=== PATIENT | female | born 1970 | race Two or more races ===

== ENCOUNTER 2020-12-16 11:15 | Outpatient (REF) | payer OTHER, SELFPAY | END 2020-12-16 11:16 | disposition home or self-care (01) | LOC: HO.LAB 11:15 | PROVIDERS: Visit Provider Internal Medicine | DX: Z20.822 Contact with and (suspected) exposure to COVID-19 (principal) | CPT/HCPCS: 36415; C9803; U0003; U0005 ==

== ENCOUNTER 2021-07-16 07:29 | Emergency (ER) | payer OTHER, SELFPAY ==
[2021-07-16 07:50] VITALS: BP 119/76; PULSE 88; RESP 13; TEMP 36.6; O2SAT 98
[2021-07-16 07:57] VITALS: BP 119/76; PULSE 86; RESP 17; TEMP 36.6; O2SAT 98; BMI 29.9
--- NOTE | 2021-07-16 08:38 | ED.EAR ---
HPI - Ear Problem General Chief complaint: Ear Problems Stated complaint: ear pain Time Seen by Provider: 07/16/21 08:09 Source: patient Mode of arrival: ambulatory Limitations: no limitations History of Present Illness HPI Narrative: 50-year-old female here with complaints of right ear pain for 2 days. No fevers, chills, URI symptoms. Related Data Previous Rx's Medication Instructions Recorded calcium carbonate 600 mg calcium 600 mg PO DAILY #30 tab 09/13/20 (1,500 mg) tablet cholecalciferol (vitamin D3) 25 25 mcg PO DAILY #30 cap 09/13/20 mcg (1,000 unit) capsule tramadol 50 mg tablet 50 mg PO Q8H 30 Days #90 tab 06/20/21 amoxicillin 875 mg-potassium 1 tab PO BID #14 tab 07/16/21 clavulanate 125 mg tablet (Augmentin) Allergies Allergy/AdvReac Type Severity Reaction Status Date / Time No Known Allergies Allergy Unverified 07/04/20 15:12 Review of Systems Review of Systems: Yes all other systems are reviewed and are negative Constitutional: Constitutional: Reports no additional constitutional complaints, Denies body ache(s), Denies chills, Denies fever(s), Denies headache(s) and Denies weakness Eyes: Eyes: Reports no additional eye complaints and Denies change in vision ENT: Reports system reviewed and no additional complaints, except as documented, Denies dizziness, Reports otalgia, Denies headache(s), Denies nasal congestion, Denies nasal discharge and Denies neck pain Cardiovascular: Cardiovascular: Reports no additional cardiovascular complaints, Denies chest pain, Denies leg edema and Denies dyspnea Respiratory: Respiratory: Reports no additional respiratory complaints, Denies cough and Denies dyspnea Gastrointestinal: Gastrointestinal: Reports no additional gastrointestinal complaints, Denies abdominal pain, Denies diarrhea, Denies nausea and Denies vomiting Genitourinary: Genitourinary: Reports no additional female genitourinary complaints and Denies urinary incontinence Musculoskeletal: Musculoskeletal: Reports no additional musculoskeletal complaints, Denies back pain, Denies arthralgias, Denies joint swelling, Denies neck pain, Denies numbness and Denies tingling Integumentary/Breasts: Skin/Breast: Reports system reviewed and no additional complaints, except as docu and Denies rash Neurologic: Reports system reviewed and no additional complaints, except as documented, Denies Abnormal speech present, Denies dizziness, Denies headache(s), Denies numbness, Denies tingling and Denies weakness PMFSH Past Medical History Attestation statement: The following information was validated with the patient. Source: old records reviewed and nursing notes reviewed Social History Social History Advance Directives: No Patient : No Physical Exam Vital Signs: Vital Signs: Last Vital Signs Temp 97.8 F 07/16/21 07:57 Pulse 86 07/16/21 07:57 Resp 17 07/16/21 07:57 BP 119/76 07/16/21 07:57 Pulse Ox 98 07/16/21 07:57 Body Mass Index 29.9 Const: General: cooperative, healthy appearing, comfortable and no acute distress Orientation/consciousness: patient oriented x3 Limitations: no limitations HENMT: Head: Yes normal to inspection Ears: hearing grossly normal bilaterally, mastoids normal, no periauricular adenopathy and TM abnormal (Right TM bulging with erythema) General nose exam: Normal external nose present Face and sinus: Yes normal facial exam Mouth: Normal oral and palatal mucosa present Throat: Yes posterior oropharynx normal, Yes tonsils normal and Yes uvula midline Eyes: General: appearance normal, both eyes and all related structures Pupils: Equal, round and reactive pupils present Neck: Neck: Yes normal visual inspection, Yes full ROM, Yes no lymphadenopathy and Yes no meningeal signs Chest: Chest palpation & inspection: normal inspection of the chest Resp: Effort & Inspection: normal respiratory effort Auscultation: clear to auscultation bilaterally Cardio: Rate: regular rate Rhythm: regular rhythm Peripheral pulses: Peripheral pulses 2+ throughout GI: Inspection: Yes normal to inspection Palpation (GI): Soft to palpation and nontender Auscultation: normal bowel sounds Back/Spine/Pelvis: Thoracic/Lumbar Spine: thoracic and lumbar spine normal to inspection Skin: General skin exam: no rashes or lesions noted Neuro: General: patient oriented x3, no meningeal signs, no focal motor deficits and normal sensation to monofilament Cranial nerves: Yes Equal, round and reactive pupils present Cognition (Neuro): normal cognition Speech: No Abnormal speech present Gait exam (Neuro): Normal gait present Motor exam (neuro): 5/5 motor strength present throughout Extrem: General: Yes normal to inspection Course Course Course Narrative: Right otitis media on exam. Will treat with course of augmentin. Reviewed worrisome signs and symptoms and when to return to the emergency department. Comfortable discharge home. Discharge Plan Discharge Clinical Impression: Otitis media Patient Disposition: Home, Self-Care Instructions: Ear Infection (ED) Additional Instructions: Increase fluids, rest Motrin or Tylenol for pain or fever Prescriptions: New amoxicillin-pot clavulanate [Augmentin] 875-125 mg tablet 1 tab PO BID Qty: 14 RF: 0 No Action cholecalciferol (vitamin D3) 25 mcg (1,000 unit) capsule 25 mcg PO DAILY Qty: 30 RF: 11 calcium carbonate 600 mg calcium (1,500 mg) tablet 600 mg PO DAILY Qty: 30 RF: 6 tramadol 50 mg tablet 50 mg PO Q8H 30 Days Qty: 90 RF: 0 Referrals: Emanuel Bhatt MD [Primary Care Provider] - 2 days Interventions: ED Discharge Assessment Last Done: 07/16/21 08:27 Discharge Date/Time: 07/16/21 08:28
== END 2021-07-16 08:28 | disposition home or self-care (01) ==
PROVIDERS: Emergency Provider Emergency Medicine Emergency Medical Services; PCP Internal Medicine
DX: H66.91 Otitis media, unspecified, right ear (principal); H92.01 Otalgia, right ear; Z79.899 Other long term (current) drug therapy
CPT/HCPCS: 99283; 99284

== ENCOUNTER 2021-10-22 10:02 | Outpatient (REF) | payer OTHER, SELFPAY ==
--- NOTE | ~2021-10-22 | XR_ITS ---
EXAMINATION: XR LEFT FOREARM AND LEFT HAND. CLINICAL INFORMATION: Pain. COMPARISON: None TECHNIQUE: AP and lateral views of the left forearm were obtained. 3 views left hand/wrist. FINDINGS: LEFT FOREARM: There is no visible fracture or bony abnormality. There is a negative ulnar variance of the wrist. The soft tissues are normal. LEFT HAND/WRIST: The radioulnar carpal, intercarpal, carpometacarpal joint space is maintained normal. There is no visible acute fracture or dislocation. There is negative ulnar variance. XR/XR forearm LT 2V IMPRESSION: Unremarkable left forearm and left hand/wrist exam.
--- NOTE | ~2021-10-22 | XR_ITS ---
EXAMINATION: XR LEFT FOREARM AND LEFT HAND. CLINICAL INFORMATION: Pain. COMPARISON: None TECHNIQUE: AP and lateral views of the left forearm were obtained. 3 views left hand/wrist. FINDINGS: LEFT FOREARM: There is no visible fracture or bony abnormality. There is a negative ulnar variance of the wrist. The soft tissues are normal. LEFT HAND/WRIST: The radioulnar carpal, intercarpal, carpometacarpal joint space is maintained normal. There is no visible acute fracture or dislocation. There is negative ulnar variance. XR/XR hand wrist LT IMPRESSION: Unremarkable left forearm and left hand/wrist exam.
[2021-10-22 10:24] LABS: MANUAL DIFF FLAG NO
[2021-10-22 10:35] LABS: Basophils Percent Auto 0.4 % (0-2); Eosinophils Absolute Auto 0.2 X10*3/uL (0.0-0.4); Eosinophils Percent Auto 2.7 % (0-4); Hematocrit 37.7 % (37.0-47.0); Hemoglobin 12.2 g/dl (12.0-16.0); Imm Gran Abs Auto 0.02 X10*3/uL (0.00-0.03); Imm Gran Pct Auto 0.3 % (0.0-0.4); Lymphocytes Absolute Auto 3.1 X10*3/uL (1.2-4.9); Lymphocytes Percent Auto 41.3 % (20-40); Mean Corpuscular HGB Conc 32.4 g/dl (31.0-35.0); Mean Corpuscular Hemoglobin 29.4 pg (27.0-33.0); Mean Corpuscular Volume 90.8 fL (80.0-98.0); Mean Platelet Volume 8.8 fL (9.4-12.3); Monocytes Absolute Auto 0.6 X10*3/uL (0.1-1.2); Monocytes Percent Auto 7.4 % (2-11); Neutrophils Absolute Auto 3.6 x10*3/uL (2.0-8.3); Neutrophils Percent Auto 47.9 % (45-73); Platelet Count 306 X10*3/uL (160-400); Red Blood Count 4.15 X10*6/uL (4.20-5.50); Red Cell Distribution Width 11.2 % (11.0-16.0); White Blood Count 7.4 X10*3/uL (4.8-10.8)
[2021-10-22 10:47] LABS: Appearance Urine HAZY; Color Urine YELLOW; Glucose Urine UA NEG (NEG); Leukocyte Esterase Urine 1+ (NEG); Nitrite Urine NEG (NEG); Specific Gravity - Urine >= 1.030 (1.005-1.025); UACC Culture Trigger YES; Urine Blood TRACE (NEG); Urine Ketones 5 MG/DL (NEG); Urine Protein TRACE MG/DL (NEG-TRACE)
[2021-10-22 11:02] LABS: RBC Urine 0-2 /HPF (0)
[2021-10-22 11:03] LABS: Estimated Average Glucose 108 mg/dL; Hemoglobin A1c % 5.4 %
[2021-10-22 11:03] LABS: Amorphous Sediment Urine 2+ /LPF; Bacteria Urine 1+ /LPF; Squamous Epithelial Cell Urine 4+ /LPF
[2021-10-22 11:10] LABS: Alanine Aminotransferase 16 U/L (0-31); Albumin Level 4.3 g/dL (3.5-5.0); Alkaline Phosphatase 83 U/L (39-117); Anion Gap 13 (12-20); Aspartate Amino Transferase 16 U/L (5-31); Bilirubin Total 1.2 mg/dL (0.0-1.0); Blood Urea Nitrogen 15 mg/dL (9-16); Calcium 9.8 mg/dL (8.4-10.2); Carbon Dioxide 26 mmol/L (22-29); Chloride 105 mmol/L (96-108); Cholesterol 172 mg/dL; Estimated Glomerular Filt Rate > 60; Glucose Fasting 126 mg/dL (60-99); HDL Cholesterol 38 mg/dL; LDL Cholesterol Calculated 96 mg/dl; Potassium 3.7 mmol/L (3.3-5.1); Sodium 140 mmol/L (135-145); Total Protein 7.8 g/dL (6.5-8.0); Triglycerides 194 mg/dL
[2021-10-22 11:32] LABS: TSH reflex Free T4 2.05 uIU/mL (0.32-4.0); Vitamin D 25-OH Total 26.7 ng/mL (>30)
== END 2021-10-22 10:03 | disposition home or self-care (01) ==
LOC: HO.LAB 10:02
PROVIDERS: PCP Internal Medicine; Visit Provider Internal Medicine
DX: Z00.00 Encounter for general adult medical examination without abnormal findings (principal); R73.01 Impaired fasting glucose; E78.00 Pure hypercholesterolemia, unspecified; E55.9 Vitamin D deficiency, unspecified; M79.632 Pain in left forearm; M79.89 Other specified soft tissue disorders
CPT/HCPCS: 36415; 73090; 73110; 73130; 80053; 80061; 81001; 82306; 83036; 84443; 85025; 87086

== ENCOUNTER 2022-01-06 15:21 | Outpatient (REF) | payer OTHER, SELFPAY ==
--- NOTE | ~2022-01-06 | MM_ITS ---
EXAMINATION: MM SCREENING DIGITAL BREAST TOMOSYNTHESIS, BILATERAL CLINICAL INFORMATION: Screening. Asymptomatic. The lifetime risk of breast cancer based on the Tyrer-Cuzick Model is 6.4%. COMPARISON: Mammography: October 24, 2019 and studies dating back to August 12, 2016 TECHNIQUE: Digital breast tomosynthesis is performed in both the craniocaudal and mediolateral oblique views along with computer-aided detection (CAD). Synthesized 2D images are generated from the tomosynthesis. FINDINGS: The breasts are extremely dense, which lowers the sensitivity of mammography (ACR BI-RADS breast composition Category d). There are no significant masses, abnormal calcifications, or other abnormalities. MM/MM tomosynthesis screening BI IMPRESSION: There are no significant changes from prior study. ASSESSMENT: BI-RADS 1: Negative RECOMMENDATION: Routine annual mammography screening. This patient's information was entered into a reminder system with a target due date for their next mammogram.
== END 2022-01-06 15:22 | disposition home or self-care (01) ==
LOC: HO.MAMMO 15:21
PROVIDERS: Visit Provider Internal Medicine
DX: Z12.31 Encounter for screening mammogram for malignant neoplasm of breast (principal)
CPT/HCPCS: 77063; 77067

== ENCOUNTER → 2022-02-13 13:45 | Outpatient (BNVA) | payer OTHER, SELFPAY | PROVIDERS: PCP Internal Medicine; Referring Provider Internal Medicine; Visit Provider Nurse Practitioner | DX: Z12.11 Encounter for screening for malignant neoplasm of colon (principal); T88.3XXD Malignant hyperthermia due to anesthesia, subsequent encounter | CPT/HCPCS: 99202 ==

== ENCOUNTER 2022-03-22 19:31 | Emergency (ER) | payer OTHER, SELFPAY ==
--- NOTE | ~2022-03-22 | XR_ITS ---
EXAMINATION: XR KNEE, LEFT CLINICAL INFORMATION: Fall COMPARISON: None TECHNIQUE: Four views of the left knee. FINDINGS: Osseous alignment is anatomic. Joint spaces are relatively well-preserved. No acute fracture is seen. Mild spurring is noted along the superior patella at the insertion of the quadriceps tendon. No significant effusion. XR/XR knee LT 3V IMPRESSION: No acute findings.
[2022-03-22 20:55] VITALS: BP 125/80; PULSE 85; RESP 18; TEMP 36.6; O2SAT 99; BMI 25.9
--- NOTE | 2022-03-23 00:35 | ED.LOWEXIN ---
HPI - Extremity Injury (Lower) General Chief Complaint: Extremity Injury, Lower Stated Complaint: pain in foot Time Seen by Provider: 03/23/22 00:28 History of Present Illness HPI Narrative: Patient is a 51-year-old female presents today with having pain to the left knee. Patient claims that she was sliding doing her volleyball game. Complaining of pain after the slide. Patient denies any systemic complaints. Came with her daughter. Patient denies any head injury. Not on blood thinners. No nausea no vomiting. No systemic complaints. Pain worsened with movement. Related Data Previous Rx's Medication Instructions Recorded calcium carbonate 600 mg calcium 600 mg PO DAILY #30 tab 09/24/21 (1,500 mg) tablet cholecalciferol (vitamin D3) 25 25 mcg PO DAILY #30 cap 09/24/21 mcg (1,000 unit) capsule albuterol sulfate 90 mcg/actuation 2 inh INHALATION Q4-6H PRN #1 ea 10/20/21 breath activated powder inhaler (ProAir RespiClick) amoxicillin 875 mg-potassium 1 tab PO Q12H 10 Days #20 tab 10/20/21 clavulanate 125 mg tablet topiramate 25 mg tablet 25 mg PO BEDTIME 90 Days #90 tab 10/20/21 albuterol sulfate 90 mcg/actuation 2 puff INHALATION Q4-6H PRN #8.5 g 11/10/21 aerosol inhaler (Ventolin HFA) albuterol sulfate 90 mcg/actuation 1 puff INHALATION QID 30 Days #8.5 11/17/21 aerosol inhaler (ProAir HFA) g peg 3350-electrolytes 236 240 ml PO Q10M 1 Days #4000 ml 02/13/22 gram-22.74 gram-6.74 gram-5.86 gram solution (Golytely) tramadol 50 mg tablet 50 mg PO Q8H PRN 30 Days #90 tab 03/09/22 omega-3 fatty acids 1,000 mg 2,000 mg PO DAILY 30 Days #60 cap 03/10/22 capsule ibuprofen 400 mg tablet 400 mg PO Q6H PRN #20 tab 03/23/22 Allergies Allergy/AdvReac Type Severity Reaction Status Date / Time No Known Allergies Allergy Verified 03/22/22 20:55 Review of Systems Review of Systems: Positive pain to the left knee Yes all other systems are reviewed and are negative PMFSH Past Medical History Attestation statement: The following information was validated with the patient. Medical History Asthma Impaired fasting glucose Migraine Vitamin D deficiency Surgical History No pertinent past surgical history Family History Family History Father Cancer Mother Diabetes Social History Social History Housing: Apartment Alcohol intake: never Patient Tobacco Use Status: Never used Tobacco Second Hand Smoke Exposure: No Advance Directives: No Advance Directives Information Provided: No Current occupational status: employed Physical Exam Vital Signs: Vital Signs: Last Vital Signs Temp 97.8 F 03/22/22 20:55 Pulse 85 03/22/22 20:55 Resp 18 03/22/22 20:55 BP 125/80 03/22/22 20:55 Pulse Ox 99 03/22/22 20:55 BMI result Body Mass Index 25.9 Appearance: Alert. Oriented X3. No acute distress. Eyes: Pupils equal, round and reactive to light. ENT: Pharynx normal. Neck: Normal inspection. Neck supple. No lymph nodes noted. No crepitus CVS: Normal heart rate and rhythm. Pulses normal. Normal S1 and S2 Respiratory: No respiratory distress. Breath sounds normal. No Wheezing. No rales Abdomen: Soft and nontender. No rigidity. No distention. good BS x4 Skin: Skin warm and dry. Normal skin color. Normal skin turgor. Extremities: Positive pain to the left knee. There is no tenderness on palpation of the patella. There is no tenderness on palpation of the medial and lateral collateral ligament. Flexion intact. Extension intact. Pain on ambulation noted. There is no pain on palpation of the medial or lateral malleolus on the left. There is no tenderness at the base of the 5th metatarsal. Patient pain is localized to the knee when she ambulates. Flexion of the hip showed no tenderness. Skin intact. Neuro: Oriented X 3. No motor deficit. No sensory deficit. Moving all extermities. No slurred speech MDM - Extremity Injury (Lower) MDM Narrative Medical decision making narrative: Patient's x-ray of the ankle showed no acute fracture. Cannot rule out the possibility of ligamentous and meniscal injury. Will have patient take Motrin for now follow-up on an outpatient basis. In stable condition. Differential Diagnosis Differential diagnosis: Likely acute internal derangement of knee Discharge Plan Discharge Clinical Impression: Acute knee pain Patient Disposition: Home, Self-Care Instructions: Crutch Instructions (ED), Knee Pain (ED) Prescriptions: New ibuprofen 400 mg tablet 400 mg PO Q6H PRN (Reason: pain) Qty: 20 0RF No Action cholecalciferol (vitamin D3) 25 mcg (1,000 unit) capsule 25 mcg PO DAILY Qty: 30 11RF calcium carbonate 600 mg calcium (1,500 mg) tablet 600 mg PO DAILY Qty: 30 6RF albuterol sulfate [Ventolin HFA] 90 mcg/actuation HFA aerosol inhaler 2 puff inhalation Q4-6H PRN (Reason: shortness of breath or wheezing) Qty: 8.5 0RF albuterol sulfate [ProAir HFA] 90 mcg/actuation HFA aerosol inhaler 1 puff inhalation QID 30 Days Qty: 8.5 1RF tramadol 50 mg tablet 50 mg PO Q8H PRN (Reason: pain) 30 Days Qty: 90 1RF omega-3 fatty acids 1,000 mg capsule 2,000 mg PO DAILY 30 Days Qty: 60 5RF Rx Instructions: 2 capsules Orally Once a day ProAir RespiClick 90 mcg/actuation aerosol powdr breath activated 2 inh inhalation Q4-6H PRN (Reason: shortness of breath or wheezing) Qty: 1 3RF topiramate 25 mg tablet 25 mg PO BEDTIME 90 Days Qty: 90 3RF amoxicillin-pot clavulanate 875-125 mg tablet 1 tab PO Q12H 10 Days Qty: 20 0RF peg 3350-electrolytes [Golytely] 236-22.74-6.74 -5.86 gram recon soln 240 ml PO Q10M 1 Days Qty: 4000 0RF Rx Instructions: until fecal effluent is clear; do not exceed a total volume of 2,000 mL Referrals: Salo Karimi MD [Physician] -
--- NOTE | 2022-03-23 01:33 | PC.NURSE ---
pt declined crutches.
== END 2022-03-23 01:34 | disposition home or self-care (01) ==
PROVIDERS: Emergency Provider Emergency Medicine Emergency Medical Services
DX: M25.562 Pain in left knee (principal)
CPT/HCPCS: 73562; 99282; 99283

== ENCOUNTER 2022-05-22 14:40 | Emergency (ER) | payer OTHER, SELFPAY ==
[2022-05-22 14:56] VITALS: BP 122/79; PULSE 82; RESP 16; TEMP 36.7; O2SAT 96; BMI 26.2
[2022-05-22 16:36] LABS: Appearance Urine CLEAR; Color Urine YELLOW; Glucose Urine UA NEG (NEG); Leukocyte Esterase Urine NEG (NEG); Nitrite Urine NEG (NEG); Specific Gravity - Urine 1.025 (1.005-1.025); UPreg QC Valid YES; Urine Blood NEG (NEG); Urine Ketones NEG (NEG); Urine Pregnancy NEGATIVE (NEGATIVE); Urine Protein NEG (NEG-TRACE)
[2022-05-22] MEDS: Acetaminophen 325 MG TABLET 975 MG PO (16:55)
[2022-05-22] MEDS: Ketorolac Tromethamine 30 MG/ML VIAL IM (16:56)
[2022-05-22] MEDS: Lidocaine 4 % Patch ADH..PATCH 1 PATCH TRANSDERMA (16:56)
--- NOTE | 2022-05-22 17:04 | ED_ITS ---
HPI - Back Pain/Injury General Chief Complaint: Back Pain/Injury Stated Complaint: back pain Time Seen by Provider: 05/22/22 15:16 Source: patient Mode of arrival: ambulatory History of Present Illness HPI Narrative: 51-year-old female who presents with left lower back pain that occurred while she was at work and moved a trash bag which was have your than she expected, it broke and then as the trash can fell over patient was pulled down with that in as per the triage note this occurred down 3 stairs. Patient denies head strike or loss of consciousness and reports localized left lower back pain without radiation into the lower extremity. Related Data Previous Rx's Medication Instructions Recorded cholecalciferol (vitamin D3) 25 25 mcg PO DAILY #30 caps 09/24/21 mcg (1,000 unit) capsule albuterol sulfate 90 mcg/actuation 2 inh inhalation Q4-6H PRN 10/20/21 breath activated powder inhaler shortness of breath or wheezing #1 (ProAir RespiClick) ea amoxicillin 875 mg-potassium 1 tab PO Q12H 10 days #20 tabs 10/20/21 clavulanate 125 mg tablet topiramate 25 mg tablet 25 mg PO BEDTIME 90 days #90 tabs 10/20/21 albuterol sulfate 90 mcg/actuation 2 puff inhalation Q4-6H PRN 11/10/21 aerosol inhaler (Ventolin HFA) shortness of breath or wheezing #8.5 grams peg 3350-electrolytes 236 240 ml PO Q10M 1 day #4,000 mL 02/13/22 gram-22.74 gram-6.74 gram-5.86 gram solution (Golytely) omega-3 fatty acids 1,000 mg 2,000 mg PO DAILY 30 days #60 caps 03/10/22 capsule ibuprofen 400 mg tablet 400 mg PO Q6H PRN pain #20 tabs 03/23/22 albuterol sulfate 90 mcg/actuation 1 puff inhalation QID 30 days #8.5 04/06/22 aerosol inhaler (ProAir HFA) grams tramadol 50 mg tablet 50 mg PO Q8H PRN pain 30 days #90 04/29/22 tabs calcium carbonate 600 mg calcium 600 mg PO DAILY #30 tabs 05/04/22 (1,500 mg) tablet cyclobenzaprine 5 mg tablet 5 mg PO BEDTIME PRN muscle spasm 05/22/22 #4 tabs ketorolac 10 mg tablet 10 mg PO Q6H PRN pain 5 days #20 05/22/22 tabs Allergies Allergy/AdvReac Type Severity Reaction Status Date / Time No Known Allergies Allergy Verified 05/22/22 14:56 Review of Systems Review of Systems: Pertinent positives and negatives as stated in HPI 10 point review of systems is otherwise negative. PMFSH Past Medical History Source: nursing notes reviewed Medical History Asthma Impaired fasting glucose Migraine Vitamin D deficiency Surgical History No pertinent past surgical history Family History Family History Father Cancer Mother Diabetes Social History Social History Housing: Apartment Alcohol intake: never Patient Tobacco Use Status: Never used Tobacco Second Hand Smoke Exposure: No Advance Directives: No Advance Directives Information Provided: Yes Current occupational status: employed Physical Exam Vital Signs: Vital Signs: Last Vital Signs Temp 98.0 F 05/22/22 14:56 Pulse 82 05/22/22 14:56 Resp 16 05/22/22 14:56 BP 122/79 05/22/22 14:56 Pulse Ox 96 05/22/22 14:56 O2 Del Method 05/22/22 14:56 BMI result Body Mass Index 26.2 VITAL SIGNS: Reviewed. GENERAL: Well developed, well nourished, in no acute distress. HEAD: Normocephalic/atraumatic EYES: PERRLA, EOMI EARS: Ext canals without abnormality OROPHARYNX: no oral lesions noted, posterior pharynx clear LUNGS: Normal breath sounds. No adventitious sounds or accessory muscle use. SpO2<96> CARDIOVASCULAR: Regular rate and rhythm without noted murmurs ABDOMEN: Soft, non-tender, non-distended with bowel sounds. BACK: No midline vertebral tenderness, patient has pain on palpation at the left lower paraspinal that extends into the flank area no overlying ecchymosis or erythema MUSCULOSKELETAL: No tenderness, deformities, or effusions noted on gross inspection. EXTREMITIES: No cyanosis, clubbing or edema. SKIN: Inspection of the skin reveals no rashes NEUROLOGIC: Alert and oriented x 4. Strength and sensation to light touch were grossly intact x 4. Course Course Course Narrative: 51-year-old female with history and clinical presentation consistent with lumbar muscle strain, combination analgesics were provided, review of all investigations otherwise negative for acute findings and patient was discharged home in stable condition. MDM - Back Pain/Injury Lab Data Labs: Lab Results 05/22/22 05/22/22 Range/Units 16:28 16:28 Urine Color YELLOW Urine Appearance CLEAR Urine pH 6.0 (5.0-8.0) Ur Specific [place] 1.025 (1.005-1.025) Urine Protein NEG (NEG-TRACE) MG/DL Urine Glucose (UA) NEG (NEG) MG/DL Urine Ketones NEG (NEG) MG/DL Urine Blood NEG (NEG) Urine Nitrite NEG (NEG) Ur Leukocyte Esterase NEG (NEG) Urine Test NEGATIVE (NEGATIVE) Discharge Plan Discharge Clinical Impression: Strain of lumbar region Patient Disposition: Home, Self-Care Instructions: Low Back Strain (ED), Back Pain (ED), Lower Back Exercises (ED), Cold Compress or Soak (ED) Additional Instructions: 1. Resume all home medications as prescribed. 2. Tylenol 1000 mg, orally, every 6 hours as needed for pain control. Do not exceed 4000 mg within 24 hours. 3. Lidocaine patch, apply to area of maximal tenderness as directed on the outside packaging. 4. Please follow-up with your primary care provider in the next 2-3 days for re- evaluation further outpatient management. Return to the ER for worsening symptoms. Prescriptions: New cyclobenzaprine 5 mg tablet 5 mg PO BEDTIME PRN (Reason: muscle spasm) Qty: 4 0RF ketorolac 10 mg tablet 10 mg PO Q6H PRN (Reason: pain) 5 Days Qty: 20 0RF Rx Instructions: 1. Patient received Toradol in the emergency room. 2. Please instruct patient. All other NSAIDs. No Action cholecalciferol (vitamin D3) 25 mcg (1,000 unit) capsule 25 mcg PO DAILY Qty: 30 11RF albuterol sulfate [Ventolin HFA] 90 mcg/actuation HFA aerosol inhaler 2 puff inhalation Q4-6H PRN (Reason: shortness of breath or wheezing) Qty: 8.5 0RF omega-3 fatty acids 1,000 mg capsule 2,000 mg PO DAILY 30 Days Qty: 60 5RF Rx Instructions: 2 capsules Orally Once a day albuterol sulfate [ProAir HFA] 90 mcg/actuation HFA aerosol inhaler 1 puff inhalation QID 30 Days Qty: 8.5 1RF tramadol 50 mg tablet 50 mg PO Q8H PRN (Reason: pain) 30 Days Qty: 90 1RF calcium carbonate 600 mg calcium (1,500 mg) tablet 600 mg PO DAILY Qty: 30 6RF ibuprofen 400 mg tablet 400 mg PO Q6H PRN (Reason: pain) Qty: 20 0RF ProAir RespiClick 90 mcg/actuation aerosol powdr breath activated 2 inh inhalation Q4-6H PRN (Reason: shortness of breath or wheezing) Qty: 1 3RF topiramate 25 mg tablet 25 mg PO BEDTIME 90 Days Qty: 90 3RF amoxicillin-pot clavulanate 875-125 mg tablet 1 tab PO Q12H 10 Days Qty: 20 0RF peg 3350-electrolytes [Golytely] 236-22.74-6.74 -5.86 gram recon soln 240 ml PO Q10M 1 Days Qty: 4000 0RF Rx Instructions: until fecal effluent is clear; do not exceed a total volume of 2,000 mL Referrals: Emanuel Bhatt MD [Primary Care Provider] - Stand Alone Forms: Work/School Release
== END 2022-05-22 18:17 | disposition home or self-care (01) ==
PROVIDERS: Emergency Provider Student in an Organized Health Care Education/Training Program; PCP Internal Medicine
DX: M54.50 Low back pain, unspecified (principal); Z79.899 Other long term (current) drug therapy
CPT/HCPCS: 81003; 81025; 96372; 99284; J1885

== ENCOUNTER 2023-01-08 13:09 | Outpatient (REF) | payer OTHER, SELFPAY ==
--- NOTE | ~2023-01-08 | MM_ITS ---
EXAMINATION: MM SCREENING DIGITAL BREAST TOMOSYNTHESIS, BILATERAL CLINICAL INFORMATION: Screening. Asymptomatic. The lifetime risk of breast cancer based on the Tyrer-Cuzick Model is 6%. COMPARISON: Mammography: 01/06/2022, 10/24/2019, 09/14/2018 TECHNIQUE: Digital breast tomosynthesis is performed in both the craniocaudal and mediolateral oblique views along with computer-aided detection (CAD). Synthesized 2D images are generated from the tomosynthesis. FINDINGS: The breasts are heterogeneously dense, which may obscure small masses (ACR BI-RADS breast composition Category c). Parenchymal pattern is similar to prior studies. There is no significant masses, developing density, or architectural abnormality. Again, there are multiple scattered bilateral round and some vascular calcifications. The axilla and skin contours are unremarkable. No significant changes. MM/MM tomosynthesis screening BI IMPRESSION: No mammographic evidence of malignancy. ASSESSMENT: BI-RADS 2: Benign RECOMMENDATION: Routine annual mammography screening. This patient's information was entered into a reminder system with a target due date for their next mammogram.
== END 2023-01-08 13:10 | disposition home or self-care (01) ==
LOC: HO.MAMMO 13:09
PROVIDERS: PCP Internal Medicine; Visit Provider Internal Medicine
DX: Z12.31 Encounter for screening mammogram for malignant neoplasm of breast (principal)
CPT/HCPCS: 77063; 77067

== ENCOUNTER 2023-03-18 09:08 | Outpatient (REF) | payer OTHER, SELFPAY ==
[2023-03-18 09:18] LABS: MANUAL DIFF FLAG NO
[2023-03-18 09:59] LABS: Basophils Percent Auto 0.4 % (0-2); Eosinophils Absolute Auto 0.3 X10*3/uL (0.0-0.4); Hematocrit 35.7 % (37.0-47.0); Hemoglobin 11.7 g/dl (12.0-16.0); Imm Gran Abs Auto 0.02 X10*3/uL (0.00-0.03); Imm Gran Pct Auto 0.3 % (0.0-0.4); Lymphocytes Absolute Auto 3.5 X10*3/uL (1.2-4.9); Lymphocytes Percent Auto 44.3 % (20-40); Mean Corpuscular HGB Conc 32.8 g/dl (31.0-35.0); Mean Corpuscular Hemoglobin 29.6 pg (27.0-33.0); Mean Corpuscular Volume 90.4 fL (80.0-98.0); Mean Platelet Volume 9.3 fL (9.4-12.3); Monocytes Absolute Auto 0.5 X10*3/uL (0.1-1.2); Monocytes Percent Auto 6.1 % (2-11); Neutrophils Absolute Auto 3.5 x10*3/uL (2.0-8.3); Neutrophils Percent Auto 44.9 % (45-73); Platelet Count 314 X10*3/uL (160-400); Red Blood Count 3.95 X10*6/uL (4.20-5.50); Red Cell Distribution Width 11.1 % (11.0-16.0); White Blood Count 7.8 X10*3/uL (4.8-10.8)
[2023-03-18 10:10] LABS: Estimated Average Glucose 100 mg/dL; Hemoglobin A1c % 5.1 %
[2023-03-18 10:27] LABS: Appearance Urine Cloudy; Color Urine Yellow; Glucose Urine UA Negative (Negative); Leukocyte Esterase Urine Moderate (2+) (Negative); Nitrite Urine Negative (Negative); PH 5.5 (5.0-9.0); Specific Gravity - Urine 1.025 (1.005-1.025); UMIC TRIGGER UACC YES; Urine Blood Trace (Negative); Urine Ketones Negative (Negative); Urine Protein 30 (1+) mg/dL (Neg-Trace)
[2023-03-18 10:36] LABS: Bacteria Urine None Seen (None Seen); UACC Culture Trigger YES
[2023-03-18 10:50] LABS: Alanine Aminotransferase 12 U/L (0-31); Albumin Level 4.4 g/dL (3.5-5.0); Alkaline Phosphatase 88 U/L (39-117); Anion Gap 14 (12-20); Aspartate Amino Transferase 12 U/L (5-31); Bilirubin Total 0.9 mg/dL (0.0-1.0); Blood Urea Nitrogen 14 mg/dL (9-16); Calcium 9.4 mg/dL (8.4-10.2); Carbon Dioxide 22 mmol/L (22-29); Chloride 109 mmol/L (96-108); Cholesterol 180 mg/dL; Estimated Glomerular Filt Rate > 60; Glucose Fasting 110 mg/dL (60-99); HDL Cholesterol 38 mg/dL; LDL Cholesterol Calculated 119 mg/dl; Potassium 3.9 mmol/L (3.3-5.1); Sodium 141 mmol/L (135-145); Total Protein 7.5 g/dL (6.5-8.0); Triglycerides 118 mg/dL
[2023-03-18 10:52] LABS: TSH reflex Free T4 3.25 uIU/mL (0.32-4.0); Vitamin D 25-OH Total 16.8 ng/mL (>30)
== END 2023-03-18 09:09 | disposition home or self-care (01) ==
LOC: HO.LAB 09:08
PROVIDERS: PCP Internal Medicine; Visit Provider Internal Medicine
DX: Z00.00 Encounter for general adult medical examination without abnormal findings (principal); E78.00 Pure hypercholesterolemia, unspecified; E55.9 Vitamin D deficiency, unspecified; R73.01 Impaired fasting glucose
CPT/HCPCS: 36415; 80053; 80061; 81001; 81003; 82306; 83036; 84443; 85025; 87086; 87147

== ENCOUNTER 2023-05-20 13:31 | Outpatient (AMB) | payer OTHER, SELFPAY ==
[2023-05-20 13:38] VITALS: BP 100/70; PULSE 88; O2SAT 99; BMI 23.3
--- NOTE | 2023-05-20 13:38 | A.OFFPC_ITS ---
Vital Signs 05/20/23 13:38 Height 4 ft 8 in Weight 104 lb BMI 23.3 BP 100/70 Blood Pressure Location Lt brachial Position Sitting Pulse 88 Pulse Source Pulse Oximeter Temp Source Skin Pulse Oximetry (%) 99 Oxygen Delivery Method Room Air Intake Visit Reasons: possible UTI, right ear pain Intake Note: pt states burning when urinating and right ear pain with drainage Allergies No Known Allergies Allergy (Verified 05/20/23 13:51) Medication List - Last Reconciled 05/20/23 by RACHEL Bucio albuterol sulfate 90 mcg/actuation (ProAir RespiClick) 2 inhalations inhalation Q4-6H PRN albuterol sulfate 90 mcg/actuation (ProAir HFA) 1 puff inhalation QID 30 days albuterol sulfate 90 mcg/actuation (Ventolin HFA) 2 puffs inhalation Q4-6H PRN calcium carbonate 600 mg PO DAILY cholecalciferol (vitamin D3) 25 mcg PO DAILY cyclobenzaprine 5 mg PO BEDTIME PRN ibuprofen 400 mg PO Q6H PRN ketorolac 10 mg PO Q6H PRN 5 days mometasone 0.1% 1 appl topical DAILY 10 days omega-3 fatty acids 2,000 mg (2 x 1,000 mg) PO DAILY 30 days tramadol 50 mg PO Q8H PRN 30 days trazodone 50 mg PO BEDTIME PRN 30 days Tobacco use date assessed: 05/20/23 HPI possible UTI, right ear pain HPI Details Patient is a 52-year-old female who presents today for the same day visit due to burning with urination for the past 3 days and right ear pain with yellow/white intermittent discharge for the past 4 days. Patient reports ear infections in the past. Patient of Dr. Bhatt. Patient denies being recently sick, no fever or chills, no headache, no sore throat, no nausea/vomiting, no blood in urine, no back pain. [facility] Medical History Asthma Impaired fasting glucose Insomnia Migraine Vitamin D deficiency Surgical History No pertinent past surgical history Family History Father Cancer Mother Diabetes Social History Housing: Apartment Alcohol intake: never Patient Tobacco Use Status: Never used Tobacco e-Cigarette/Vaping Use: Never Used Second Hand Smoke Exposure: No Current occupational status: employed Cognitive needs: No Hearing needs: No Vision needs: No Questionnaire Thrive Questionnaire Date Thrive assessed: 02/24/23 AUDIT C Alcohol Use Questionnaire (AUDIT-C) 1. How often do you have a drink containing alcohol?: Never 3. How often do you have six or more drinks on one occasion?: Never Total Score: 0 Score Reviewed/Action Taken: No VANI-7 AMB Questionnaire VANI-7 Date VANI - 7 assessed: 02/24/23 Source: Developed by Drs. Etienne Baird, Suad Velasquez, Federico Dupont and colleagues, with an educational nathan from [employer]. Review of Systems Const Denies body aches, Denies chills, Denies fever(s) and Denies headache(s) Eyes Denies change in vision ENT Denies dizziness, Reports otalgia, Denies headache(s), Denies nasal discharge, Denies sinus pain and Denies sore throat Card Denies chest pain, Denies edema, Denies lightheadedness and Denies dyspnea Resp Denies cough, Denies dyspnea and Denies wheezing GI Denies abdominal pain, Denies constipation, Denies diarrhea, Denies nausea and Denies vomiting Denies hematuria, Reports dysuria and Denies flank pain Musc Denies myalgias Skin/Breast Denies rash Neuro Denies dizziness and Denies headache(s) Aller/Immun Denies wheezing Physical exam (Primary Care) Vital Signs: Last Vital Signs Pulse 88 05/20/23 13:38 BP 100/70 05/20/23 13:38 Pulse Ox 99 05/20/23 13:38 Oxygen Delivery Method Room Air 05/20/23 13:38 BMI result Body Mass Index 23.3 Tobacco/Smoking Status: Tobacco use Status Tobacco use date assessed 05/20/23 05/20/23 13:44 Patient Tobacco Use Status Never used Tobacco 05/20/23 13:44 e-Cigarette/Vaping Use Never Used 05/20/23 13:44 Thrive Assessment: Date of Thrive Assessment Date Thrive assessed 02/24/23 05/20/23 13:44 Const General: cooperative and no acute distress Orientation/consciousness: patient oriented x3 HENMT Other: Left TM partially obstructed by cerumen, visualized TM normal Right TM partially obstructed by cerumen, visualized TM normal, right ear canal with moderate erythema and swelling, no discharge noted Head: Yes normocephalic and Yes atraumatic Face and sinus: Yes sinuses nontender Mouth: oropharynx normal and moist mucous membranes Throat: Yes posterior oropharynx normal Eyes General: appearance normal, both eyes and all related structures Neck Neck: Yes normal visual inspection, Yes full ROM and Yes no lymphadenopathy Resp Effort & Inspection: normal respiratory effort and able to speak in complete sentences Auscultation: clear to auscultation bilaterally, no crackles, no rales, no rhonchi and no wheezes Cardio Rate: regular rate Rhythm: regular rhythm Heart sounds: S1 normal heart sound present and S2 normal heart sound present GI Palpation (GI): Soft to palpation, not firm, nontender, no guarding, not rigid and no hepatosplenomegaly Auscultation: normal bowel sounds General: No CVA tenderness Back/Spine/Pelvis Back: No CVA tenderness Skin General skin exam: no rashes or lesions noted Neuro General: patient oriented x3 Gait exam (Neuro): Normal gait present Extrem General: Yes full ROM and No edema Results AMB Urinalysis, Automated UA Leukoctes 500 Chapis/uL Last Edit by WILLI Sumner on 05/20/23 13:46 UA Nitrite Positive Last Edit by WILLI Sumner on 05/20/23 13:46 UA Urobilinogen 0.2 mg/dL Last Edit by WILLI Sumner on 05/20/23 13:46 UA Protein 100 mg/dL Last Edit by WILLI Sumner on 05/20/23 13:46 UA pH 6.0 Last Edit by WILLI Sumner on 05/20/23 13:46 UA Blood 200 Ignacio/uL Last Edit by WILLI Sumner on 05/20/23 13:46 UA Specific Hammond 1.025 Last Edit by WILLI Sumner on 05/20/23 13:46 UA Ketone Negative Last Edit by WILLI Sumner on 05/20/23 13:46 UA Bilirubin 0 mg/dL Last Edit by WILLI Sumner on 05/20/23 13:46 UA Glucose 0 mg/dL Last Edit by WILLI Sumner on 05/20/23 13:46 Results Reviewed Results Reviewed: Laboratory Last Values Urine pH (Auto) 6.0 05/20/23 13:44 Specific [place] (Auto) 1.025 05/20/23 13:44 Urine Protein (Auto) 100 mg/dL 05/20/23 13:44 Glucose (UA)(Auto) 0 mg/dL 05/20/23 13:44 Urine Ketones (Auto) Negative 05/20/23 13:44 Urine Blood (Auto) 200 Ignacio/uL 05/20/23 13:44 Urine Nitrite (Auto) Positive 05/20/23 13:44 Urine Bilirubin (Auto) 0 mg/dL 05/20/23 13:44 Urine Urobilinogen (Auto) 0.2 mg/dL 05/20/23 13:44 Leukocyte Esterase (Auto) 500 Chapis/uL 05/20/23 13:44 Assessment and Plan Assessment & Plan (1) Right otitis externa: Code(s): H60.91 - Unspecified otitis externa, right ear Plan: Suspect right otitis externa, will treat with ear drops to right ear t.i.d. for 7 days, follow-up if no improvement after finishing ear drops (2) UTI (urinary tract infection): Code(s): N39.0 - Urinary tract infection, site not specified Plan: Urinalysis positive for UTI Will treat with Macrobid b.i.d. for 7 days Increase fluid consumption Follow-up if no improvement after finishing treatment Orders: Orders AMB Urinalysis Automated Today R30.0 - Dysuria Medications: New nitrofurantoin monohyd/m-cryst 100 mg (Macrobid) must administer with a meal/food 100 mg PO Q12H 7 days 14 caps 0RF N39.0 - Urinary tract infection, site not specified hydrocortisone-acetic acid 1-2 % 4 drps otic (ears) TID 7 days 10 mL 0RF H60.91 - Unspecified otitis externa, right ear Coding Level of Care Code Est Pt Level 4 (92123) Diagnoses Right otitis externa H60.91 UTI (urinary tract infection) N39.0
== END 2023-05-20 14:03 | disposition home or self-care (01) ==
PROVIDERS: PCP Internal Medicine; Visit Provider Nurse Practitioner Family
DX: H60.91 Unspecified otitis externa, right ear (principal); N39.0 Urinary tract infection, site not specified; R30.0 Dysuria
CPT/HCPCS: 81003; 99214

== ENCOUNTER 2023-08-27 09:33 | Outpatient (AMB) | payer OTHER, SELFPAY ==
[2023-08-27 09:48] VITALS: BP 118/80; O2SAT 99; BMI 24.0
--- NOTE | 2023-08-27 09:48 | A.OFFPC_ITS ---
Vital Signs 08/27/23 09:48 08/27/23 09:48 Height 4 ft 8 in 4 ft 8 in Weight 48.591 kg BMI 24.0 BP 118/80 Blood Pressure Location Lt brachial Lt brachial Position Sitting Sitting Pulse Source Pulse Oximeter Pulse Oximeter Pulse Oximetry (%) 99 Oxygen Delivery Method Room Air Room Air Intake Visit Reasons: migraine, asthma, insomnia Allergies No Known Allergies Allergy (Verified 08/27/23 09:48) Tobacco use date assessed: 05/20/23 Dental Screening Dental Screen Date: 08/27/23 Did you have a dental visit in the last 12 months?: Yes Did you have a dental problem in the last 6 months where you did not have access to dental care?: No Was dental information given to patient?: Patient has dentist [facility] Medical History Asthma Impaired fasting glucose Insomnia Migraine Vitamin D deficiency Surgical History No pertinent past surgical history Family History Father Cancer Mother Diabetes Social History Housing: Apartment Alcohol intake: never Patient Tobacco Use Status: Never used Tobacco e-Cigarette/Vaping Use: Never Used Second Hand Smoke Exposure: No Current occupational status: employed Cognitive needs: No Hearing needs: No Vision needs: No Questionnaire PHQ-9 Over the last 2 weeks, how often have you been bothered by any of the following problems? 1. Little interest or pleasure in doing things: not at all 2. Feeling down, depressed, or hopeless: not at all 3. Trouble falling or staying asleep, or sleeping too much: not at all 4. Feeling tired or having little energy: not at all 5. Poor appetite or overeating: not at all 6. Feeling bad about yourself - or that you are a failure or have let yourself or your family down: not at all 7. Trouble concentrating on things, such as reading the newspaper or watching television: not at all 8. Moving or speaking so slowly that other people could have noticed. Or the o pposite - being so fidgety or restless that you have been moving around a lot more than usual: not at all 9. Thoughts that you would be better off or of hurting yourself in some way: not at all Total score: 0 Depression Screening Interpretation: Negative Depression Screening Done: Yes 00805 - PHQ-9 Billing: Yes Source: Developed by Drs. Etienne Baird, Suad Velasquez, Federico Duopnt and colleagues, with an educational nathan from [employer]. Thrive Questionnaire Date Thrive assessed: 02/24/23 AUDIT C Alcohol Use Questionnaire (AUDIT-C) 1. How often do you have a drink containing alcohol?: Never 3. How often do you have six or more drinks on one occasion?: Never Total Score: 0 Score Reviewed/Action Taken: No VANI-7 AMB Questionnaire VANI-7 Date VANI - 7 assessed: 02/24/23 Source: Developed by Drs. Etienne Baird, Suad Velasquez, Federico uDpont and colleagues, with an educational nathan from [employer]. Physical exam (Primary Care) Vital Signs: Last Vital Signs BP 118/80 08/27/23 09:48 Pulse Ox 99 08/27/23 09:48 Oxygen Delivery Method Room Air 08/27/23 09:48 BMI result Body Mass Index 24.0 Tobacco/Smoking Status: Tobacco use Status Tobacco use date assessed 05/20/23 08/27/23 09:51 Patient Tobacco Use Status Never used Tobacco 08/27/23 09:51 e-Cigarette/Vaping Use Never Used 08/27/23 09:51 PHQ-9: PHQ-9 Score PHQ-9: Total score 0 08/27/23 09:51 Depression Screening Interpretation: Negative Thrive Assessment: Date of Thrive Assessment Date Thrive assessed 02/24/23 08/27/23 09:51 Office Procedures Flu Questionnaire Does the patient have a severe egg allergy?: No Does the patient have severe life threatening allergies?: No Does the patient have a fever or illness today?: No Has the patient ever had Guillain-Grant Syndrome?: No Has the patient ever had any past reaction to a flu shot?: No Immunizations flu vacc [id number] 6mos up(PF) 60 mcg(15 mcgx4)/0.5 mL IM syringe Performing Provider: Emanuel Bhatt MD [facility] Administered by: SALOME Naranjo on 08/27/23 10:05 Dose Route Admin Location Dispensed Lot Number Expiration Date NDC Integration Director 0.5 mL IM Left Deltoid 0.5 mL [id number] 04/16/24 60148-871-94 Precision Biopsy VIS Given Date VIS Provided VIS Publication Date 08/27/23 Single Vaccine 21 Eligibility Eligibility Date Funding Source Not [facility] Eligible 08/27/23 Private Assessment and Plan Assessment & Plan Orders: Orders AMB Hemoglobin A1c Today R73.01 - Impaired fasting glucose Influenza [id number] Immunization Today Z23 - Encounter for immunization Coding
--- NOTE | 2023-08-27 09:48 | MHC.PC.OV ---
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 Accompanied by: Self / Same As Patient Allergies No Known Allergies Allergy (Verified 08/29/23 17:56) Medication List - Last Reconciled 08/29/23 by Emanuel Bhatt MD albuterol sulfate 90 mcg/actuation (Ventolin HFA) 2 puffs inhalation Q4-6H PRN calcium carbonate 600 mg PO DAILY cholecalciferol (vitamin D3) 25 mcg PO DAILY cyclobenzaprine 5 mg PO BEDTIME PRN multivitamin with iron (Daily Multiple Vitamins with Iron tablet) 1 tab PO DAILY 90 days omega-3 fatty acids 2,000 mg (2 x 1,000 mg) PO DAILY 30 days peg 3350-electrolytes [id number] -5.86 gram 240 mL PO Q10M tramadol 50 mg PO Q8H PRN 30 days trazodone 50 mg PO BEDTIME PRN 30 days Tobacco use date assessed: 05/20/23 Dental Screening Dental Screen Date: 08/27/23 Did you have a dental visit in the last 12 months?: Yes Did you have a dental problem in the last 6 months where you did not have access to dental care?: No Was dental information given to patient?: Patient has dentist HPI migraine, asthma, insomnia HPI Details Patient comes in today for her follow-up visit States that she feels okay Denies any increased headaches or dizziness lately - notes that her migraine headaches have been well-controlled for a while now She denies any chest pains, no SOB - states that her asthma has also been well-controlled lately No nausea/vomiting, no abdominal pain No change in bowel habits noted Would like to know how she did on her labs done a few months ago after her physical exam in the spring Would also like to get her flu shot today PFSH Medical History (Updated 08/29/23 @ 18:25 by Emanuel Bhatt MD) Anemia Insomnia Vitamin D deficiency Impaired fasting glucose Asthma Migraine Surgical History No pertinent past surgical history Family History Father Cancer Mother Diabetes Social History Housing: Apartment Alcohol intake: never Patient Tobacco Use Status: Never used Tobacco e-Cigarette/Vaping Use: Never Used Second Hand Smoke Exposure: No Current occupational status: employed Cognitive needs: No Hearing needs: No Vision needs: No Questionnaire Thrive Questionnaire Date Thrive assessed: 02/24/23 VANI-7 AMB Questionnaire VANI-7 Date VANI - 7 assessed: 02/24/23 Source: Developed by Drs. Etienne Baird, Suad Velasquez, Federico Dupont and colleagues, with an educational nathan from [employer]. Review of Systems Const Reports difficulty sleeping, Reports fatigue, Denies fever(s) and Denies headache(s) ENT Denies dysphagia, Denies dizziness, Denies otalgia, Denies headache(s), Denies neck pain, Denies odynophagia and Denies sore throat Card Denies chest pain, Denies rapid heart rate, Denies irregular heart rhythm, Denies palpitations and Denies dyspnea Resp Denies chest congestion, Denies cough, Denies dyspnea and Denies wheezing GI Denies abdominal pain, Denies constipation, Denies dysphagia, Denies heartburn, Denies diarrhea, Denies nausea, Denies odynophagia and Denies vomiting Denies hematuria, Denies urinary frequency and Denies dysuria Musc Reports back pain (on and off), Reports arthralgias (on and off, especially over right knee) and Denies neck pain Skin/Breast Denies rash Neuro Denies dizziness and Denies headache(s) Psych Denies anxiety and Denies depression Endo Reports fatigue and Denies palpitations Vitaly/Lymph Denies easy bruising Aller/Immun Denies wheezing Physical exam (Primary Care) Vital Signs: Last Vital Signs BP 118/80 08/27/23 09:48 Pulse Ox 99 08/27/23 09:48 Oxygen Delivery Method Room Air 08/27/23 09:48 BMI result Body Mass Index 24.0 Tobacco/Smoking Status: Tobacco use Status Tobacco use date assessed 05/20/23 08/27/23 09:51 Patient Tobacco Use Status Never used Tobacco 08/27/23 09:51 e-Cigarette/Vaping Use Never Used 08/27/23 09:51 PHQ-9: PHQ-9 Score PHQ-9: Total score 0 08/27/23 09:51 Thrive Assessment: Date of Thrive Assessment Date Thrive assessed 02/24/23 08/27/23 09:51 Const General: no acute distress and alert HENMT Ears: TM's normal bilaterally and EAC's normal Throat: Yes posterior oropharynx normal and Yes tonsils normal (no TP congestion) Neck Neck: Yes no lymphadenopathy and Yes supple Thyroid: Thyroid normal Resp Auscultation: clear to auscultation bilaterally, no rales and no wheezes Cardio Rate: regular rate Rhythm: regular rhythm Heart sounds: no murmurs GI Palpation (GI): Soft to palpation and nontender Auscultation: normal bowel sounds General: Yes no CVA tenderness Back/Spine/Pelvis Back: no CVA tenderness Thoracic/Lumbar Spine: lumbar spinal tenderness (mild) Skin Rashes: no rashes Extrem General: Yes no clubbing, cyanosis or edema Right lower extremity: knee Details: tenderness Location: of the medial joint line; no swelling Office Procedures Flu Questionnaire Does the patient have a severe egg allergy?: No Does the patient have severe life threatening allergies?: No Does the patient have a fever or illness today?: No Has the patient ever had Guillain-Crawford Syndrome?: No Has the patient ever had any past reaction to a flu shot?: No Results AMB Hemoglobin A1c AMB Hemoglobin A1c 5.3 % Last Edit by SALOME Naranjo on 08/27/23 10:09 Immunizations flu vacc [id number] 6mos up(PF) 60 mcg(15 mcgx4)/0.5 mL IM syringe Performing Provider: Emanuel Bhatt MD [facility] Administered by: SALOME Naranjo on 08/27/23 10:05 Dose Route Admin Location Dispensed Lot Number Expiration Date NDC Basting Machine Operator 0.5 mL IM Left Deltoid 0.5 mL [id number] 04/16/24 [id number] [employer] VIS Given Date VIS Provided VIS Publication Date 08/27/23 Single Vaccine 21 Eligibility Eligibility Date Funding Source Not [facility] Eligible 08/27/23 Private Results Reviewed Results Reviewed: Laboratory Last Values Hgb A1c (Clinic) 5.3 % (4.0-6.0) 08/27/23 10:09 Laboratory Tests 03/18/23 03/18/23 03/18/23 09:15 09:15 09:16 WBC 7.8 Hgb 11.7 L Hct 35.7 L Plt Count 314 Sodium 141 Potassium 3.9 Creatinine Estimated GFR > 60 Fasting Glucose 110 H Hemoglobin A1c % 5.1 Calcium 9.4 AST 12 ALT 12 Triglycerides 118 Cholesterol 180 LDL Cholesterol, Calc 119 HDL Cholesterol 38 25-OH Vitamin D Total 16.8 TSH 3.25 Ur Specific [place] 1.025 Urine Protein 30 (1+) H Urine Glucose (UA) Negative Urine Blood Trace H 03/18/23 09:16 WBC Hgb Hct Plt Count Sodium Potassium Creatinine 0.79 Estimated GFR Fasting Glucose Hemoglobin A1c % Calcium AST ALT Triglycerides Cholesterol LDL Cholesterol, Calc HDL Cholesterol 25-OH Vitamin D Total TSH Ur Specific [place] Urine Protein Urine Glucose (UA) Urine Blood Assessment and Plan Assessment & Plan (1) Asthma: Code(s): J45.909 - Unspecified asthma, uncomplicated Qualifiers: Asthma severity: moderate Asthma persistence: persistent Asthma complication type: uncomplicated Qualified Code(s): J45.40 - Moderate persistent asthma, uncomplicated Plan: Stable Continue Advair HFA 115-21 mcg 2 inhalations BID and Albuterol HFA 2 inhalations every 6 hours as needed (2) Migraine: Code(s): G43.909 - Migraine, unspecified, not intractable, without status migrainosus Qualifiers: Migraine type: with aura Status migrainosus presence: without status migrainosus Intractability: not intractable Qualified Code(s): G43.109 - Migraine with aura, not intractable, without status migrainosus Plan: Much better controlled / stable on prophylactic Tx with Topiramate Continue Topiramate 25 mg Q HS and Tramadol 50 mg TID PRN only for severe headaches Reinforced again avoidance of any potential migraine triggers (3) Dyslipidemia: Code(s): E78.5 - Hyperlipidemia, unspecified Plan: Results of her labs done a few months ago reviewed and discussed with patient - advised that her cholesterol levels are acceptable although her HDL cholesterol is low Reinforced low cholesterol diet Will recheck her labs in 6 months for follow up (4) Impaired fasting glucose: Code(s): R73.01 - Impaired fasting glucose Plan: In-office HgbA1c done today is normal at 5.3%; her HgbA1c was also normal at 5.1% back in March 2023 although her FBS was elevated at 110 mg/dl Reinforced low calorie diet/exercise as tolerated (5) Anemia: Code(s): D64.9 - Anemia, unspecified Qualifiers: Anemia type: unspecified type Qualified Code(s): D64.9 - Anemia, unspecified Plan: Advised that her H/H were slightly low on her labs done in March 2023 Will have her start taking some Multivitamins with iron daily (Rx sent) and will recheck her CBC in 6 months to see if they will improve with iron supplementation or not (6) Vitamin D deficiency: Code(s): E55.9 - Vitamin D deficiency, unspecified Plan: Advised that her Vitamin D level was still very low on her labs done a few months ago Continue Vitamin D3 1000 units QD - Rx refilled Will recheck Vitamin D level and labs in 6 months for follow up (7) Right knee pain: Code(s): M25.561 - Pain in right knee Qualifiers: Chronicity: unspecified Qualified Code(s): M25.561 - Pain in right knee Plan: X-rays of the right knee done a few years ago revealed (+) mild medial joint space narrowing Discussed again that she likely has or will in time develop some arthritis of her right knee joint Continue Tramadol 50 mg TID PRN for pain (8) Eczema: Code(s): L30.9 - Dermatitis, unspecified Qualifiers: Eczema type: unspecified Qualified Code(s): L30.9 - Dermatitis, unspecified Plan: Continue Mometasone 0.1% cream QD PRN (9) Insomnia: Code(s): G47.00 - Insomnia, unspecified Qualifiers: Insomnia type: unspecified Qualified Code(s): G47.00 - Insomnia, unspecified Plan: Sleep hygiene reinforced Continue Trazodone 50 mg Q HS PRN Plan Flu vaccine given today Follow up in 6 months Orders: Orders AMB Hemoglobin A1c 08/27/23 R73.01 - Impaired fasting glucose TSH reflex Free T4 6 Months E78.00 - Pure hypercholesterolemia, unspecified Influenza [id number] Immunization 11/10/23 Z23 - Encounter for immunization Complete Blood Count Auto Diff 6 Months I10 - Essential (primary) hypertension Comprehensive [place]. Panel Fast 6 Months E78.00 - Pure hypercholesterolemia, unspecified Lipid Panel 6 Months E78.00 - Pure hypercholesterolemia, unspecified UA CC w/rflx Micro + Cult 6 Months R30.0 - Dysuria Vitamin D 25-OH Total 6 Months E55.9 - Vitamin D deficiency, unspecified Medications: New multivitamin with iron (Daily Multiple Vitamins with Iron tablet) 1 tab PO DAILY 90 days 90 tabs 3RF Refilled cholecalciferol (vitamin D3) 25 mcg PO DAILY 30 caps 11RF Coding Level of Care Code Est Pt Level 4 (01535) Diagnoses Moderate persistent asthma without complication J45.40 Asthma severity: moderate Asthma persistence: persistent Asthma complication type: uncomplicated Migraine with aura and without status migrainosus, not intractable G43.109 Migraine type: with aura Status migrainosus presence: without status migrainosus Intractability: not intractable Dyslipidemia E78.5 Impaired fasting glucose R73.01 Anemia, unspecified type D64.9 Anemia type: unspecified type Vitamin D deficiency E55.9 Right knee pain, unspecified chronicity M25.561 Chronicity: unspecified Eczema, unspecified type L30.9 Eczema type: unspecified Insomnia, unspecified type G47.00 Insomnia type: unspecified
== END 2023-08-27 10:16 | disposition home or self-care (01) ==
PROVIDERS: Visit Provider Internal Medicine
DX: R73.01 Impaired fasting glucose (principal); Z23 Encounter for immunization
CPT/HCPCS: 83036; 90471; 90686; 99214

== ENCOUNTER 2024-01-18 15:46 | Outpatient (REF) | payer OTHER, SELFPAY ==
--- NOTE | ~2024-01-18 | MM_ITS ---
EXAMINATION: MM SCREENING DIGITAL BREAST TOMOSYNTHESIS, BILATERAL CLINICAL INFORMATION: Screening. Asymptomatic. COMPARISON: Mammography: This study is compared with prior exams dating back to 2018. TECHNIQUE: Digital breast tomosynthesis is performed in both the craniocaudal and mediolateral oblique views along with computer-aided detection (CAD). Synthesized 2D images are generated from the tomosynthesis. FINDINGS: The breasts are heterogeneously dense, which may obscure small masses (ACR BI-RADS breast composition Category c). There are no significant masses, abnormal calcifications, or other abnormalities. There are scattered, bilateral benign calcifications. MM/MM tomosynthesis screening BI IMPRESSION: No mammographic evidence of malignancy. ASSESSMENT: BI-RADS BI-RADS 2 - Benign Findings RECOMMENDATION: Routine annual mammography screening. 1 year F/U This examination should not preclude the clinical evaluation of a suspicious palpable abnormality. This patient's information was entered into a reminder system with a target due date for their next mammogram.
== END 2024-01-18 15:47 | disposition home or self-care (01) ==
LOC: HO.MAMMO 15:46
PROVIDERS: Visit Provider Internal Medicine
DX: Z12.31 Encounter for screening mammogram for malignant neoplasm of breast (principal)
CPT/HCPCS: 77063; 77067

== ENCOUNTER → 2024-01-18 16:15 | Outpatient (BNV) | payer OTHER, SELFPAY | PROVIDERS: Visit Provider Radiology Diagnostic Radiology | DX: Z12.31 Encounter for screening mammogram for malignant neoplasm of breast (principal) | CPT/HCPCS: 77063; 77067 ==

== ENCOUNTER 2024-02-29 10:43 | Outpatient (AMB) | payer OTHER, SELFPAY ==
[2024-02-29 10:45] VITALS: BP 100/64; PULSE 80; O2SAT 94; BMI 24.2
--- NOTE | 2024-02-29 10:45 | A.OFFPC_ITS ---
Vital Signs 02/29/24 10:45 Height 4 ft 8 in Weight 108 lb BMI 24.2 BP 100/64 Blood Pressure Location Lt brachial Position Sitting Pulse 80 Pulse Source Pulse Oximeter Pulse Oximetry (%) 94 Oxygen Delivery Method Room Air Intake Visit Reasons: asthma, dyslipidemia Well Site Drilling Engineer Required: No Vacuum Tank Tender: Not Required per policy Accompanied by: Self / Same As Patient Allergies No Known Allergies Allergy (Verified 02/29/24 11:22) Medication List - Last Reconciled 02/29/24 by Emanuel Bhatt MD albuterol sulfate 90 mcg/actuation (Ventolin HFA) 2 puffs inhalation Q4-6H PRN calcium carbonate 600 mg PO DAILY 90 days cholecalciferol (vitamin D3) 25 mcg PO DAILY cyclobenzaprine 5 mg PO BEDTIME PRN multivitamin with iron (Daily Multiple Vitamins with Iron tablet) 1 tab PO DAILY 90 days omega-3 fatty acids 2,000 mg (2 x 1,000 mg) PO DAILY 30 days peg 3350-electrolytes [id number] -5.86 gram 240 mL PO Q10M tramadol 50 mg PO Q8H PRN 30 days trazodone 50 mg PO BEDTIME PRN 30 days Tobacco use date assessed: 02/29/24 Dental Screening Dental Screen Date: 02/29/24 Did you have a dental visit in the last 12 months?: Yes Did you have a dental problem in the last 6 months where you did not have access to dental care?: No Was dental information given to patient?: Patient has dentist HPI asthma, dyslipidemia HPI Details Patient comes in today for her follow up visit States that she feels okay but has been experiencing occasional transient dizziness for the past week or so Has noticed that her symptoms seem to occur mostly when she gets up quickly from sitting or lying down but the dizziness tends to pass just a few seconds later with no other issues She denies any headaches and denies any recent cough/cold symptoms Denies any acute ear symptoms lately She denies any chest pains, no SOB No nausea/vomiting, no abdominal pain No change in bowel habits noted States that her low back pain and joint pains remain adequately controlled on her current Rx Needs a couple of her Rx refilled today She is also wondering why her insurance will no longer cover her [place] 3 capsules now when they used to before She was not able to get her previously ordered follow up labs done yet [facility] Medical History Anemia Insomnia Vitamin D deficiency Impaired fasting glucose Asthma Migraine Surgical History No pertinent past surgical history Family History Father Cancer Mother Diabetes Social History Housing: Apartment Alcohol intake: never Patient Tobacco Use Status: Never used Tobacco e-Cigarette/Vaping Use: Never Used Second Hand Smoke Exposure: No Current occupational status: employed Cognitive needs: No Hearing needs: No Vision needs: No Questionnaire PHQ-9 Over the last 2 weeks, how often have you been bothered by any of the following problems? 1. Little interest or pleasure in doing things: not at all 2. Feeling down, depressed, or hopeless: not at all 3. Trouble falling or staying asleep, or sleeping too much: not at all 4. Feeling tired or having little energy: not at all 5. Poor appetite or overeating: not at all 6. Feeling bad about yourself - or that you are a failure or have let yourself or your family down: not at all 7. Trouble concentrating on things, such as reading the newspaper or watching television: not at all 8. Moving or speaking so slowly that other people could have noticed. Or the opposite - being so fidgety or restless that you have been moving around a lot more than usual: not at all 9. Thoughts that you would be better off or of hurting yourself in some way: not at all Total score: 0 Depression Screening Interpretation: Negative Depression Screening Done: Yes 04649 - PHQ-9 Billing: Yes Source: Developed by Drs. Etienne Baird, Suad Velasquez, Federico Dupont and colleagues, with an educational nathan from [employer]. Thrive Questionnaire Date Thrive assessed: 02/29/24 I am a: Patient What is your living situation today?: I have a steady place to live Within the past 12 months, did the food you bought not last and you didn't have the money to get more?: Never true Within the past 12 months, did you worry whether your food would run out before you got money to buy more?: Never true Do you have trouble paying for medicines?: No Do you have trouble getting transportation to medical appointments?: No Do you have trouble paying your heating and electricity bill?: No Do you have trouble taking care of your child, family member or friend?: No Do you have trouble with day-to-day activities such as bathing, preparing meals, shopping, managing finances, etc.?: No Are you currently unemployed and looking for a job?: No Are you interested in more education?: No Please select the resources that you would like help with: None Currently or been in a relationship where the following occur: no concerns reported THRIVE Score: 0 AUDIT C Alcohol Use Questionnaire (AUDIT-C) 1. How often do you have a drink containing alcohol?: Never 3. How often do you have six or more drinks on one occasion?: Never Total Score: 0 Score Reviewed/Action Taken: Yes VANI-7 AMB Questionnaire VANI-7 Date VANI - 7 assessed: 02/29/24 Feeling nervous, anxious, or on edge: 0 = Not at all Not being able to stop or control worryin = Not at all Worrying too much about different things: 0 = Not at all Trouble relaxin = Not at all Being so restless that it is hard to sit still: 0 = Not at all Becoming easily annoyed or irritable: 0 = Not at all Feeling afraid as if something awful might happen: 0 = Not at all Total VANI-7 score (0-4 normal; 5-9 mild; 10-14 moderate; 15-21 severe): 0 Source: Developed by Drs. Etienne Baird, Suad Velasquez, Federico Dupont and colleagues, with an educational nathan from [employer]. Review of Systems Const Reports difficulty sleeping, Denies fatigue, Denies fever(s) and Denies headache(s) ENT Denies dysphagia, Reports dizziness (at times over the past week; mostly when she gets up too quickly), Denies otalgia, Denies headache(s), Denies neck pain, Denies odynophagia and Denies sore throat Card Denies chest pain, Denies rapid heart rate, Denies irregular heart rhythm, Denies palpitations and Denies dyspnea Resp Denies chest congestion, Denies cough, Denies dyspnea and Denies wheezing GI Denies abdominal pain, Denies constipation, Denies dysphagia, Denies heartburn, Denies diarrhea, Denies nausea, Denies odynophagia and Denies vomiting Denies hematuria, Denies urinary frequency, Denies dysuria and Denies urinary urgency Musc Reports back pain (on and off), Reports arthralgias (on and off, especially over right knee) and Denies neck pain Skin/Breast Denies rash Neuro Reports dizziness (at times over the past week; mostly when she gets up too quickly) and Denies headache(s) Psych Denies anxiety and Denies depression Endo Denies fatigue and Denies palpitations Vitaly/Lymph Denies easy bruising Aller/Immun Denies wheezing Physical exam (Primary Care) Vital Signs: Last Vital Signs Pulse 80 02/29/24 10:45 BP 100/64 02/29/24 10:45 Pulse Ox 94 02/29/24 10:45 Oxygen Delivery Method Room Air 02/29/24 10:45 BMI result Body Mass Index 24.2 Tobacco/Smoking Status: Tobacco use Status Tobacco use date assessed 02/29/24 02/29/24 10:46 Patient Tobacco Use Status Never used Tobacco 02/29/24 10:46 e-Cigarette/Vaping Use Never Used 02/29/24 10:46 PHQ-9: PHQ-9 Score PHQ-9: Total score 0 02/29/24 10:46 Depression Screening Interpretation: Negative Thrive Assessment: Date of Thrive Assessment Date Thrive assessed 02/29/24 02/29/24 10:46 Currently or been in a relationship where the following occur: no concerns reported Const General: no acute distress and alert HENMT Ears: TM's normal bilaterally and EAC's normal Throat: Yes posterior oropharynx normal and Yes tonsils normal (no TP congestion) Neck Neck: Yes no lymphadenopathy and Yes supple Thyroid: Thyroid normal Resp Auscultation: clear to auscultation bilaterally, no rales and no wheezes Cardio Rate: regular rate Rhythm: regular rhythm Heart sounds: no murmurs GI Palpation (GI): Soft to palpation and nontender Auscultation: normal bowel sounds General: Yes no CVA tenderness Back/Spine/Pelvis Back: no CVA tenderness Thoracic/Lumbar Spine: lumbar spinal tenderness (mild) Skin Rashes: no rashes Extrem General: Yes no clubbing, cyanosis or edema Right lower extremity: knee Details: tenderness Location: of the medial joint line; no swelling Assessment and Plan Assessment & Plan (1) Dizziness: Code(s): R42 - Dizziness and giddiness Plan: Possible orthostasis Have advised patient that she is currently NOT on any Rx that can affect her blood pressure and that dehydration/inadequate oral fluid intake may be contributing to this Have also advised her to try to get her previously ordered labs done [facility] as they may also provide some additional information regarding her symptoms (2) Asthma: Code(s): J45.909 - Unspecified asthma, uncomplicated Qualifiers: Asthma severity: moderate Asthma persistence: persistent Asthma complication type: uncomplicated Qualified Code(s): J45.40 - Moderate persistent asthma, uncomplicated Plan: Stable Continue Advair HFA 115-21 mcg 2 inhalations BID and Albuterol HFA 2 inhalations every 6 hours as needed (3) Migraine: Code(s): G43.909 - Migraine, unspecified, not intractable, without status migrainosus Qualifiers: Migraine type: with aura Status migrainosus presence: without status migrainosus Intractability: not intractable Qualified Code(s): G43.109 - Migraine with aura, not intractable, without status migrainosus Plan: States that her headaches have been much better controlled / stable on prophylactic Tx with Topiramate Continue Topiramate 25 mg Q HS and Tramadol 50 mg TID PRN only for severe headaches Reinforced again avoidance of any potential migraine triggers (4) Dyslipidemia: Code(s): E78.5 - Hyperlipidemia, unspecified Plan: Reinforced low cholesterol diet Continue [place]-3 capsules 2000 mg QD - patient is advised that insurance companies have all gotten more restrictive in what they will cover and that most companies now will not cover anything that is available OTC Will recheck her labs and fasting lipids PHILIP for follow up (5) Impaired fasting glucose: Code(s): R73.01 - Impaired fasting glucose Plan: In-office HgbA1c was normal at 5.3% when checked a few months ago; her HgbA1c was also normal at 5.1% back in March 2023 although her FBS was elevated at 110 mg/dl Reinforced low calorie diet/exercise as tolerated (6) Anemia: Code(s): D64.9 - Anemia, unspecified Qualifiers: Anemia type: unspecified type Qualified Code(s): D64.9 - Anemia, unspecified Plan: She is reminded that her H/H were slightly low on her labs done in March 2023 and should get her follow up labs done PHILIP We started patient on some Multivitamins with iron daily (Rx sent) last year and we will see if her anemia has improved with iron supplementation or not when she gets her labs done (7) Vitamin D deficiency: Code(s): E55.9 - Vitamin D deficiency, unspecified Plan: Continue Vitamin D3 1000 units QD Will recheck Vitamin D level for follow up (8) Right knee pain: Code(s): M25.561 - Pain in right knee Qualifiers: Chronicity: unspecified Qualified Code(s): M25.561 - Pain in right knee Plan: X-rays of the right knee done a few years ago revealed (+) mild medial joint space narrowing Discussed again that she likely has or will in time develop some arthritis of her right knee joint Continue Tramadol 50 mg TID PRN for pain (9) Eczema: Code(s): L30.9 - Dermatitis, unspecified Qualifiers: Eczema type: unspecified Qualified Code(s): L30.9 - Dermatitis, unspecified Plan: Continue Mometasone 0.1% cream QD PRN (10) Insomnia: Code(s): G47.00 - Insomnia, unspecified Qualifiers: Insomnia type: unspecified Qualified Code(s): G47.00 - Insomnia, unspecified Plan: Sleep hygiene reinforced Continue Trazodone 50 mg Q HS PRN Plan To return in 3 to 4 months for her annual physical examination Medications: Changed From calcium carbonate 600 mg PO DAILY 30 tabs 2RF To calcium carbonate 600 mg PO DAILY 90 days 90 tabs 3RF Refilled tramadol 50 mg PO Q8H 30 days PRN 90 tabs 1RF pain albuterol sulfate 90 mcg/actuation (Ventolin HFA) 2 puffs inhalation Q4-6H PRN 8.5 grams 5RF shortness of breath or wheezing J45.40 - Moderate persistent asthma, uncomplicated Coding Level of Care Code Est Pt Level 4 (78098) Diagnoses Dizziness R42 Moderate persistent asthma without complication J45.40 Asthma severity: moderate Asthma persistence: persistent Asthma complication type: uncomplicated Migraine with aura and without status migrainosus, not intractable G43.109 Migraine type: with aura Status migrainosus presence: without status migrainosus Intractability: not intractable Dyslipidemia E78.5 Impaired fasting glucose R73.01 Anemia, unspecified type D64.9 Anemia type: unspecified type Vitamin D deficiency E55.9 Right knee pain, unspecified chronicity M25.561 Chronicity: unspecified Eczema, unspecified type L30.9 Eczema type: unspecified Insomnia, unspecified type G47.00 Insomnia type: unspecified
== END 2024-02-29 11:29 | disposition home or self-care (01) ==
PROVIDERS: PCP Internal Medicine; Visit Provider Internal Medicine
DX: R42 Dizziness and giddiness (principal); J45.40 Moderate persistent asthma, uncomplicated; G43.109 Migraine with aura, not intractable, without status migrainosus; E78.5 Hyperlipidemia, unspecified; R73.01 Impaired fasting glucose; D64.9 Anemia, unspecified; E55.9 Vitamin D deficiency, unspecified; M25.561 Pain in right knee; L30.9 Dermatitis, unspecified; G47.00 Insomnia, unspecified
CPT/HCPCS: 99214

== ENCOUNTER 2024-03-07 09:52 | Outpatient (REF) | payer OTHER, SELFPAY ==
[2024-03-07 10:30] LABS: MANUAL DIFF FLAG NO
[2024-03-07 10:50] LABS: Basophils Percent Auto 0.5 % (0-2); Eosinophils Absolute Auto 0.2 X10*3/uL (0.0-0.4); Eosinophils Percent Auto 3.7 % (0-4); Hematocrit 35.6 % (37.0-47.0); Hemoglobin 12.1 g/dl (12.0-16.0); Imm Gran Abs Auto 0.02 X10*3/uL (0.00-0.03); Imm Gran Pct Auto 0.3 % (0.0-0.4); Lymphocytes Absolute Auto 2.2 X10*3/uL (1.2-4.9); Lymphocytes Percent Auto 34.7 % (20-40); Mean Corpuscular Hemoglobin 30.5 pg (27.0-33.0); Mean Corpuscular Volume 89.7 fL (80.0-98.0); Mean Platelet Volume 8.6 fL (9.4-12.3); Monocytes Absolute Auto 0.4 X10*3/uL (0.1-1.2); Monocytes Percent Auto 6.8 % (2-11); Neutrophils Absolute Auto 3.5 x10*3/uL (2.0-8.3); Platelet Count 265 X10*3/uL (160-400); Red Blood Count 3.97 X10*6/uL (4.20-5.50); Red Cell Distribution Width 11.4 % (11.0-16.0); White Blood Count 6.5 X10*3/uL (4.8-10.8)
[2024-03-07 11:15] LABS: Appearance Urine Clear; Color Urine Dark Yellow; Glucose Urine UA Negative (Negative); Leukocyte Esterase Urine Small (1+) (Negative); Nitrite Urine Negative (Negative); PH 5.5 (5.0-9.0); Specific Gravity - Urine 1.025 (1.005-1.025); UMIC TRIGGER UACC YES; Urine Blood Trace (Negative); Urine Ketones Trace mg/dL (Negative); Urine Protein 30 (1+) mg/dL (Neg-Trace)
[2024-03-07 11:54] LABS: Alanine Aminotransferase 14 U/L (0-31); Albumin Level 4.5 g/dL (3.5-5.0); Alkaline Phosphatase 84 U/L (39-117); Anion Gap 18 (12-20); Aspartate Amino Transferase 16 U/L (5-31); Bilirubin Total 1.2 mg/dL (0.0-1.0); Blood Urea Nitrogen 13 mg/dL (9-16); Calcium 9.9 mg/dL (8.4-10.2); Carbon Dioxide 22 mmol/L (22-29); Chloride 106 mmol/L (96-108); Cholesterol 169 mg/dL (<200); Estimated Glomerular Filt Rate > 60; Glucose Fasting 108 mg/dL (60-99); HDL Cholesterol 40 mg/dL (>40); LDL Cholesterol Calculated 84 mg/dL (<100); Potassium 3.5 mmol/L (3.3-5.1); Sodium 142 mmol/L (135-145); Total Protein 8.1 g/dL (6.5-8.0); Triglycerides 229 mg/dL (<150)
[2024-03-07 11:57] LABS: TSH reflex Free T4 1.93 uIU/mL (0.32-4.0); Vitamin D 25-OH Total 37.2 ng/mL (>30)
[2024-03-07 12:59] LABS: Bacteria Urine None Seen (None Seen); UACC Culture Trigger YES; WBC Urine 0-5 /HPF (0-5)
== END 2024-03-07 09:53 | disposition home or self-care (01) ==
LOC: HO.LAB 09:52
PROVIDERS: PCP Internal Medicine; Visit Provider Internal Medicine
DX: Z00.00 Encounter for general adult medical examination without abnormal findings (principal); E78.00 Pure hypercholesterolemia, unspecified; I10 Essential (primary) hypertension; E55.9 Vitamin D deficiency, unspecified; R30.0 Dysuria
CPT/HCPCS: 36415; 80053; 80061; 81001; 81003; 82306; 84443; 85025; 87086; 87147

== ENCOUNTER 2024-05-08 15:42 | Outpatient (AMB) | payer OTHER, SELFPAY ==
--- NOTE | 2024-05-08 15:54 | MHC.PC.OV ---
Vital Signs 05/08/24 15:55 Height 4 ft 8 in Weight 107 lb 6 oz BMI 24.1 BP 80/52 L Blood Pressure Location Lt brachial Position Sitting Pulse 84 Pulse Source Pulse Oximeter Pulse Oximetry (%) 99 Oxygen Delivery Method Room Air Intake Visit Reasons: Annual Exam Intake Note: Patient is here today for a physical. 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 Instrument Sterilizer: Not Required per policy Accompanied by: Self / Same As Patient Allergies No Known Allergies Allergy (Verified 05/08/24 16:21) Medication List - Last Reconciled 05/08/24 by Emanuel Bhatt MD albuterol sulfate 90 mcg/actuation (Ventolin HFA) 2 puffs inhalation Q4-6H PRN calcium carbonate 600 mg PO DAILY 90 days cholecalciferol (vitamin D3) 25 mcg PO DAILY cyclobenzaprine 5 mg PO BEDTIME PRN multivitamin with iron (Daily Multiple Vitamins with Iron tablet) 1 tab PO DAILY 90 days omega-3 fatty acids 2,000 mg (2 x 1,000 mg) PO DAILY 30 days peg 3350-electrolytes 236-22.74-6.74 -5.86 gram 240 mL PO Q10M tramadol 50 mg PO Q8H PRN 30 days trazodone 50 mg PO BEDTIME PRN 30 days Tobacco use date assessed: 05/08/24 Dental Screening Dental Screen Date: 02/29/24 HPI Annual Exam HPI Details Patient comes in today for her annual physical examination States that she feels okay She denies any increased headaches or dizziness lately Denies any chest pains, no SOB No nausea/vomiting, no abdominal pain No change in bowel habits noted She denies any acute urinary symptoms Adds that she has been experiencing increased pain over her left indext finger - states that the finger sometimes feels slightly swollen She denies any recent injury or trauma to her finger Lastly, states that she has an itchy rash behind her left ear that has been recurring for a while now and needs some Rx to help clear this up She had her follow up labs done a couple of months ago - to discuss her results She last had her annual mammogram done in January 2024 Her 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 - states that her next appointment will be sometime late this year or early next year She was supposed to get a screening colonoscopy done back in 2021 but her grandfather unexpectedly and she had to cancel her procedure at the time [facility] Medical History Anemia Insomnia Vitamin D deficiency Impaired fasting glucose Asthma Migraine Surgical History No pertinent past surgical history Family History Father Cancer Mother Diabetes Social History Housing: Apartment Alcohol intake: never Patient Tobacco Use Status: Never used Tobacco e-Cigarette/Vaping Use: Never Used Second Hand Smoke Exposure: No service: No Current occupational status: employed Cognitive needs: No Hearing needs: No Vision needs: No Questionnaire Thrive Questionnaire Date Thrive assessed: 02/29/24 VANI-7 AMB Questionnaire VANI-7 Date VANI - 7 assessed: 02/29/24 Source: Developed by Drs. Etienne Baird, Suad Velasquez, Federico Dupont and colleagues, with an educational nathan from [employer] Review of Systems Const Denies chills, Denies fatigue, Denies fever(s), Reports headache(s) (occasionally) and Denies malaise Eyes Denies blurry vision, Denies change in vision, Denies irritation and Denies itchy eyes ENT Denies dysphagia, Denies dizziness, Denies otalgia, Reports headache(s) (occasionally), Denies nasal congestion, Denies neck pain, Denies odynophagia, Denies sinus pain and Denies sore throat Card Denies chest pain, Denies rapid heart rate, Denies irregular heart rhythm, Denies palpitations and Denies dyspnea Resp Denies chest congestion, Denies cough, Denies dyspnea and Denies wheezing GI Denies abdominal pain, Denies bloating, Denies constipation, Denies dysphagia, Denies heartburn, Denies diarrhea, Denies nausea, Denies odynophagia and Denies vomiting Denies hematuria, Denies urinary frequency, Denies dysuria, Denies urinary incontinence and Denies urinary urgency Musc Reports back pain (recurrent, over the lower back), Reports arthralgias (over the index finger of the left hand), Denies joint swelling, Denies muscle weakness and Denies neck pain Skin/Breast Denies breast pain, Denies breast mass, Denies change in pigmentation, Denies lesions, Reports rash (recurrent, itchy - behind the left ear) and Denies unusual bruising Neuro Denies dizziness, Reports headache(s) (occasionally) and Denies paresthesias Psych Denies anxiety and Denies depression Endo Denies fatigue and Denies palpitations Vitaly/Lymph Denies easy bruising Aller/Immun Denies itchy eyes and Denies wheezing Physical exam (Primary Care) Vital Signs: Last Vital Signs Pulse 84 05/08/24 15:55 BP 80/52 L 05/08/24 15:55 Pulse Ox 99 05/08/24 15:55 Oxygen Delivery Method Room Air 05/08/24 15:55 BMI result Body Mass Index 24.1 Tobacco/Smoking Status: Tobacco use Status Tobacco use date assessed 05/08/24 05/08/24 16:02 Patient Tobacco Use Status Never used Tobacco 05/08/24 16:02 e-Cigarette/Vaping Use Never Used 05/08/24 16:02 Thrive Assessment: Date of Thrive Assessment Date Thrive assessed 02/29/24 05/08/24 16:02 Const General: no acute distress, alert and awake Orientation/consciousness: patient oriented x3 HENMT Head: Yes normocephalic and Yes atraumatic Ears: external ears normal, TM's normal bilaterally and EAC's normal General nose exam: No nasal discharge present Face and sinus: Yes normal facial exam and Yes sinuses nontender Teeth and gingiva: dentition normal Throat: Yes posterior oropharynx normal and Yes tonsils normal (no TP congestion) Eyes Eyelids: Yes eyelids normal Conjunctivae: conjunctivae normal Pupils: Equal, round and reactive pupils present EOM: EOMs intact bilaterally Neck Neck: Yes no lymphadenopathy and Yes supple Thyroid: Thyroid normal Carotids: no other Lymphatic: lymphadenopathy not noted Resp Auscultation: clear to auscultation bilaterally, no rales and no wheezes Cardio Rate: regular rate Rhythm: regular rhythm Heart sounds: no murmurs GI Palpation (GI): Soft to palpation, nontender and No hepatosplenomegaly present Auscultation: normal bowel sounds General: Yes no CVA tenderness Back/Spine/Pelvis Back: no CVA tenderness Thoracic/Lumbar Spine: lumbar spinal tenderness (mild) Skin Lesions: no lesions Rashes: rashes noted (erythematous, itchy rash over left posterior auricular area) Neuro General: patient oriented x3, moves all extremities, no focal motor deficits and CN's II-XI intact bilaterally Cranial nerves: Yes Equal, round and reactive pupils present Cognition (Neuro): normal cognition Gait exam (Neuro): Normal gait present Extrem General: Yes no clubbing, cyanosis or edema Left upper extremity: hand Details: tenderness Location: of the 2nd digit Location: involving the entire digit and no swelling Results AMB Hemoglobin A1c AMB Hemoglobin A1c 5.3 % Last Edit by WILLI Cid on 05/08/24 16:19 Results Reviewed Results Reviewed: Laboratory Last Values Hgb A1c (Clinic) 5.3 % (4.0-6.0) 05/08/24 15:54 Laboratory Tests 03/07/24 03/07/24 05/08/24 10:29 10:30 15:54 WBC 6.5 Hgb 12.1 Hct 35.6 L Plt Count 265 Sodium 142 Potassium 3.5 Creatinine 0.80 Estimated GFR > 60 Fasting Glucose 108 H Hgb A1c (Clinic) 5.3 Calcium 9.9 AST 16 ALT 14 Triglycerides 229 H Cholesterol 169 LDL Cholesterol, Calc 84 HDL Cholesterol 40 L 25-OH Vitamin D Total 37.2 TSH 1.93 Ur Specific [place] 1.025 Urine Protein 30 (1+) H Urine Glucose (UA) Negative Urine Blood Trace H Urine Nitrite Negative Ur Leukocyte Esterase Small (1+) H Assessment and Plan Assessment & Plan (1) Annual physical exam: Code(s): Z00.00 - Encounter for general adult medical examination without abnormal findings Plan: Results of her labs done a couple of months ago reviewed and discussed with patient She was not able to get her colonoscopy done in 2021 and needs a new referral - referral to GI done She is up-to-date with her annual mammogram and 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 (goes to [facility] in [place]) (2) Asthma: Code(s): J45.909 - Unspecified asthma, uncomplicated Qualifiers: Asthma complication type: uncomplicated Asthma persistence: persistent Asthma severity: moderate Qualified Code(s): J45.40 - Moderate persistent asthma, uncomplicated Plan: Stable Continue Advair HFA 115-21 mcg 2 inhalations BID and Albuterol HFA 2 inhalations every 6 hours as needed (3) Migraine: Code(s): G43.909 - Migraine, unspecified, not intractable, without status migrainosus Qualifiers: Intractability: not intractable Migraine type: with aura Status migrainosus presence: without status migrainosus Qualified Code(s): G43.109 - Migraine with aura, not intractable, without status migrainosus Plan: States that her headaches have been much better controlled / stable on prophylactic Tx with Topiramate Continue Topiramate 25 mg Q HS and Tramadol 50 mg TID PRN only for severe headaches Reinforced again avoidance of any potential migraine triggers (4) Dyslipidemia: Code(s): E78.5 - Hyperlipidemia, unspecified Plan: Reinforced low cholesterol diet Continue [place]-3 capsules 2000 mg QD Will recheck her labs and fasting lipids in 4 months for follow up (5) Impaired fasting glucose: Code(s): R73.01 - Impaired fasting glucose Plan: Her in-office HgbA1c done today is normal at 5.3%; it was also at 5.3% when last checked a few months ago Reinforced low calorie diet/exercise as tolerated (6) Anemia: Code(s): D64.9 - Anemia, unspecified Qualifiers: Anemia type: unspecified type Qualified Code(s): D64.9 - Anemia, unspecified Plan: Improved - H/H is now at 12.1/35.6 Continue Multivitamins with Iron tablets daily Will continue to monitor her CBC regularly (7) Vitamin D deficiency: Code(s): E55.9 - Vitamin D deficiency, unspecified Plan: Continue Vitamin D3 1000 units QD (8) Right knee pain: Code(s): M25.561 - Pain in right knee Qualifiers: Chronicity: unspecified Qualified Code(s): M25.561 - Pain in right knee Plan: X-rays of the right knee done a few years ago revealed (+) mild medial joint space narrowing Discussed again that she likely has or will in time develop some arthritis of her right knee joint Continue Tramadol 50 mg TID PRN for pain (9) Finger pain, left: Code(s): M79.645 - Pain in left finger(s) Plan: 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 Will send her for x-rays of the left index finger for further evaluation (10) Eczema: Code(s): L30.9 - Dermatitis, unspecified Qualifiers: Eczema type: unspecified Qualified Code(s): L30.9 - Dermatitis, unspecified Plan: Will start her on Triamcinolone 0.5% cream BID x 10 days (11) Insomnia: Code(s): G47.00 - Insomnia, unspecified Qualifiers: Insomnia type: unspecified Qualified Code(s): G47.00 - Insomnia, unspecified Plan: Sleep hygiene reinforced Continue Trazodone 50 mg Q HS PRN (12) Colon cancer screening: Code(s): Z12.11 - Encounter for screening for malignant neoplasm of colon Plan: Will refer her back to GI for screening colonoscopy Plan Follow up in 4 months Orders: Orders Comprehensive [place]. Panel Fast 4 Months E78.00 - Pure hypercholesterolemia, unspecified Lipid Panel 4 Months E78.00 - Pure hypercholesterolemia, unspecified AMB Hemoglobin A1c Today R73.01 - Impaired fasting glucose XR hand LT min 3V Today M79.645 - Pain in left finger(s) Referrals Gastroenterology Referral Z12.11 - Encounter for screening for malignant neoplasm of colon Medications: New triamcinolone acetonide 0.5% 1 appl topical BID PRN 30 grams 0RF rash Coding Level of Care Code Est Pt Prev Care 40-64y([id number]) Diagnoses Annual physical exam Z00.00 Moderate persistent asthma without complication J45.40 Asthma complication type: uncomplicated Asthma persistence: persistent Asthma severity: moderate Migraine with aura and without status migrainosus, not intractable G43.109 Intractability: not intractable Migraine type: with aura Status migrainosus presence: without status migrainosus Dyslipidemia E78.5 Impaired fasting glucose R73.01 Anemia, unspecified type D64.9 Anemia type: unspecified type Vitamin D deficiency E55.9 Right knee pain, unspecified chronicity M25.561 Chronicity: unspecified Finger pain, left M79.645 Eczema, unspecified type L30.9 Eczema type: unspecified Insomnia, unspecified type G47.00 Insomnia type: unspecified Colon cancer screening Z12.11
[2024-05-08 15:55] VITALS: BP 80/52; PULSE 84; O2SAT 99; BMI 24.1
== END 2024-05-08 16:33 | disposition home or self-care (01) ==
PROVIDERS: Visit Provider Internal Medicine
DX: Z00.00 Encounter for general adult medical examination without abnormal findings (principal); J45.40 Moderate persistent asthma, uncomplicated; G43.109 Migraine with aura, not intractable, without status migrainosus; E78.5 Hyperlipidemia, unspecified; R73.01 Impaired fasting glucose; D64.9 Anemia, unspecified; E55.9 Vitamin D deficiency, unspecified; M25.561 Pain in right knee; M79.645 Pain in left finger(s); L30.9 Dermatitis, unspecified; G47.00 Insomnia, unspecified; Z12.11 Encounter for screening for malignant neoplasm of colon
CPT/HCPCS: 83036; 99396

== ENCOUNTER 2024-05-16 10:49 | Outpatient (REF) | payer OTHER, SELFPAY ==
--- NOTE | ~2024-05-16 | XR_ITS ---
EXAMINATION: XR HAND, LEFT CLINICAL INFORMATION: Left index finger pain x1 month. COMPARISON: None available. TECHNIQUE: PA, lateral, and oblique views of the left hand. FINDINGS: Mild soft tissue swelling at the index finger. No fracture or malalignment. Tiny marginal osteophytes in the DIP joints. Joint spaces are well preserved. No fracture or malalignment. No erosions. XR/XR hand LT min 3V IMPRESSION: Mild soft tissue swelling at the index finger. No acute osseous findings.
== END 2024-05-16 10:50 | disposition home or self-care (01) ==
LOC: HO.XRAY 10:49
PROVIDERS: PCP Internal Medicine; Visit Provider Internal Medicine
DX: M79.645 Pain in left finger(s) (principal)
CPT/HCPCS: 73130

== ENCOUNTER 2024-09-28 10:27 | Outpatient (AMB) | payer OTHER, SELFPAY ==
--- OUTSIDE RECORDS SUMMARY | 2024-09-28 10:32 | XMS_ITS ---
Author Organization [facility] Address [address] [place] [id number] Care Team Providers Care Hims Coder Name Role Phone Marcia Meier Unavailable [phone] Allergies No Known Allergies REASON FOR VISIT IUD Evaluation Medications Medication SIG (Take, Route, Frequency, Duration) Notes Start Date End Date Status Mirena Active Social History Sex Assigned At : Social History Observation Description Sex Assigned At Female Vital Signs Blood pressure systolic 112 mm Hg 03/06/20 24 Blood pressure diastolic 76 mm Hg 024 Height 4'8 in 03/06/2024 Weight 108.2 lbs 03/06/2024 BMI 24.26 kg/m2 03/06/2024 Encounters Encounter Location Date Provider Diagnosis [address] [phone] 03/06/2024 Marcia Mcclouds Encounter for routin e checking of intrauterine contraceptive device Z30.431 Assessments Encounter Date Diagnosis (ICD Code) Assessment Notes Treatment Notes Treatment Clinical Notes Section Notes 03/06/2024 Encounter for routine checking of intrauterine contraceptive device (ICD-10 - Z30.431) Advised patient Mirena now FDA approved for up to 8 years. Advised deferring removal until that time and evaluating for menopause/need for contraception before replacement. Return for evaluation if noting bleeding changes, pain, menopausal symptoms or other concerns. If PCP can't do pap/pelvic, pt may call for annual exam. Declines STI screening or other symptoms today. Spent 15 minutes doing the following: Chart Prep Obtaining/r eviewing history Counseling/ Coordinatio n of Care Documenting the visit Educating the patient 03/06/2024 Other Discussed STI risks, screening, and safe sex Spent 15 minutes doing the following: Chart Prep Obtaining/r eviewing history Counseling/ Coordinatio n of Care Documenting the visit Educating the patient Plan Of Treatment Treatment Notes Assessment Notes Encounter for routine checki ng of intrauterine contraceptive device Advised patient Mirena now FDA approved for up to 8 years. Advised deferring removal until that time and evaluating for menopause/need for contraception before replacement. Return for evaluation if noting bleeding changes, pain, menopausal symptoms or other concerns. If PCP can't do pap/pelvic, pt may call [facility] for annual exam. Declines STI screening or other symptoms today. Other Discussed STI risks, screening, and safe sex Next Appt Details Follow Up: prn, Reason: Progress Notes * Kristyn CROWLEYDOB:1970 ([age] yo F)Acc No.[id number]:03/06/2024 Progress Note Patient:?Kristyn CROWLEY Provider:?LEOBARDO Yanez :1970???Age:53 Y???Sex:Female D ate:03/06/2024 Address:[address] [place] [address] Subjective: * Chief Complaints: * ???IUD Evaluation * HPI: ???Visit Narrative:?Current form of control:?Mirena.?Presenting Symptoms:?no Sx or concerns.?LMP:?02/16/2024.?Last date of UPI:?02/26/2024.?Other Notes for the Clinician:?Client is happy w/ method. Removal and reinsertion in 2018. Not due for removal until 2026. States only has vaginal spotting w/ Mirena. Denies havy any perimenopausal Sx.? Pt initially presented for Mirena IUD replacement, in place a little over 5 years. Happy with method, no concerns or problems. Has light spotting every couple of months since first inserted, no changes. No pelvic pain, vaginal symptoms, menopausal symptoms?or other concerns. Had normal screening mammogram 11/2023 and scheduled for preventative care appt with PCP next month, thinks will be getting pap with them. * ROS:?General/Constitutional:?Denies?Chills.?Denies?Fever.?Endocrine:?Denies?Hot flashes.?Vaginal/Breast/ Control FU:?Trouble feeling the IUD strings?denies.?Feeling the plastic part of the IUD?denies.?Signs/Symptoms of ?denies.?Denies?Heavy bleeding during menses.?Denies?Irregular menses.?Denies?Missed period(s). Denies?Painful intercourse.?Denies?Painful menses.?Denies?Vaginal discharge/itching.? 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 * Department Head History:? control:?Mirena (removal and reinsertion 2019 w/ [facility]), Mirena (since 01/06/2013, inserted w/ [facility]).?Last mammogram date:?11/2023.?Last menstrual period:?02/16/2024.?Last pap smear date:?07/27/2016 NIL, HPV neg.?Menarche: ?Age of menarche?14 ???Periods:?every month, scant blood loss.?Sexual activity:?currently sexually active, with men.?Sexually Transmitted Diseases (STDs):?none.?Unprotected sex in the last 5 days?:?no.?Unprotected sex in the past 10 days?:?yes.? * OB History:?Total pregnancies:?10.?Total living children:?10.?NVD:?10.? * Surgical History:?No Surgica l History documented. * Hospitalization/Major Diagno stic Procedure:?No Hospitalization History. * Family History:? No known family history. * Social History:?Food Access:?Food Access?The Client's current access to food is?Secure Food Access ???Housing:?Housing?The client's current living situation is:?stable housing ???Reproductive Life Plan:?Reproductive Life Plan?Do you want to have children??No, I don't want to have children ?How sure are you that you will be able to use your control method without any problems??Very sure ?People's plans change. Is it possible you or your partner could ever decide to become ??No ???Sexual History:?Sexual History?Sexual History Reviewed:?Partners, Practices, Protection/Past STIs, Prevention of ?Currently sexually active??Yes ?Sexually active with:?Men ?Your sexual activities include:?oral intercourse, vaginal intercourse ?Reviewed types of EC??No ?Do you use condoms??No ?Date of last unprotected intercourse:?02/26/2024 ?Number of partners in past 3 months:?1 ?Number of partners in past year:?1 ?What is the client's primary method to prevent at the end of their visit??IUD - Mirena ?Does your partner(s) currently have any STIs??No ???HIV Risk Assessment:?Additional Questions?Is an HIV Risk Assessment being conducted??No ???PrEP for HIV:?PrEP for HIV?Is the client interested in beginning/continuing PrEP for HIV??No ???Relationships:?Relationships?Has the client experienced any of the following:?Client has never experienced harmful relationships ???Human Trafficking:?Human Trafficking?Experienced:?No ???Tobacco Use:?Tobacco Use?Do you/have you used tobacco??No ?Tobacco Smoking Status?Never smoker ???Drugs/Alcohol:?Drug/Alcohol Use?Do you or have you used drugs??No ?Do you or have you used alcohol??No ???Counseling Provided:?Counseling Provided?Please indicate the length of time, in minutes, that counseling was provided.?7 ?Counseling Was Provided By:?tacos * Medications:?TakingMirena Ta maxwell Mirena * Allergies:?N.K.D.A.no[Allerg ies Verified] Objective: * Vitals:?BP:112/76mm Hg, Ht: 4'8 , Wt:108.2lbs, BMI:24.26Index, Ht-cm: 142.24, Wt-k.08. * Examination: ???General Examination: ?GENERAL APPEARANCE:?in no acute distress.?NEUROLOGIC:?alert and oriented.? Assessment: * Assessment: 1.?Encounter for routine mami cking of intrauterine contraceptive device - Z30.431? Spent 15 minutes doing the f ollowing: Chart Prep Obtaining/reviewing history Counseling/Coordination of Care Documenting the visit Educating the patient. Plan: * Treatment: 2.?Others? Notes: Discussed STI risks, screening, and safe sex?? * Procedure Codes:? * Follow Up:?prn * Billing Information: * Visit Code:? 49429 New-Straightforward (IN USE). * Procedure Codes:? * Sign off status: Completed true * Provider:?LEOBARDO Yanez Date: ?03/06/2024 Generated for Dianne quezada/Tobias/eTransmitting on:?09/28/2024 10:32 AM EST History and Physical Notes * HPI (History of Present Illness) Category Sub-Category Detail Notes Category Not es Visit Narrative Current form of jluis h control: Mirena Pt initially presented for Mirena IUD replacement, in place a little over 5 years. Happy with method, no concerns or problems. Has light spotting every couple of months since first inserted, no changes. No pelvic pain, vaginal symptoms, menopausal symptoms or other concerns. Had normal screening mammogram 11/2023 and scheduled for preventative care appt with PCP next month, thinks will be getting pap with them. Presenting Symptoms: no Sx or concerns Other Notes for the Clinician: Client is happy w/ method. Removal and reinsertion in 2018. Not due for removal until 2026. States only has vaginal spotting w/ Mirena. Denies havy any perimenopausal Sx LMP: 02/16/2024 Last date of UPI: 02/26/2024 Examination Category Sub-Category Detail Notes Category Not es General Examination GENERAL APPEARANCE: in no acute di stress NEUROLOGIC: alert and oriented
--- OUTSIDE RECORDS SUMMARY | 2024-09-28 10:32 | XMS_ITS | Patient Health Record ---
Author Organization [facility] Address [address] [place] [id number] Care Team Providers Care Manager Game Name Role Phone Marcia Meier Unavailable [phone] Allergies No Known Allergies Reason For Referral No Information Medications Medication SIG (Take, Route, Frequency, Duration) Notes Start Date End Date Status Mirena Active Social History Sex Assigned At : Social History Observation Description Sex Assigned At Female Vital Signs Blood pressure diastolic 76 mm Hg 03/06/2024 Height 4'8 in 03/06/2024 Blood pressure systolic 112 mm Hg 03/06/2024 Weight 108.2 lbs 03/06/2024 BMI 24.26 kg/m2 03/06/2024 Encounters Encounter Location Date Provider Diagnosis [address] [phone] 03/06/2024 Marcia Meier Encounter for routin e checking of intrauterine [...] visit Educating the patient Plan Of Treatment No Information Insurance Providers Payer Name Payer Address Payer Phone Subscriber Number Group Number Insured Name Patient Relationship to Insured Coverage Start Date Coverage End Date [place] ATT CLAIMS [address] [place] [id number] Kristyn Crowley Self - patient is the insured Medical (General) History Medical History History ICD Code No significant problems
[2024-09-28 10:45] VITALS: BP 122/76; PULSE 93; O2SAT 97; BMI 24.0
--- NOTE | 2024-09-28 10:45 | MHC.PC.OV ---
Vital Signs 09/28/24 10:45 Height 4 ft 8 in Weight 107 lb BMI 24.0 BP 122/76 Blood Pressure Location Lt brachial Position Sitting Pulse 93 Pulse Source Pulse Oximeter Pulse Oximetry (%) 97 Oxygen Delivery Method Room Air Intake Visit Reasons: 4 month f/u Coin Teller Required: No Accompanied by: Self / Same As Patient Allergies No Known Allergies Allergy (Verified 09/28/24 11:38) Medication List - Last Reconciled 09/28/24 by Emanuel Bhatt MD albuterol sulfate 90 mcg/actuation (Ventolin HFA) 2 puffs inhalation Q4-6H PRN calcium carbonate 600 mg PO DAILY 90 days cholecalciferol (vitamin D3) 25 mcg PO DAILY cyclobenzaprine 5 mg PO BEDTIME PRN multivitamin with iron 1 tab PO DAILY 90 days omega-3 fatty acids 2,000 mg (2 x 1,000 mg) PO DAILY 30 days peg 3350-electrolytes 236-22.74-6.74 -5.86 gram 240 mL PO Q10M tramadol 50 mg PO Q8H PRN 30 days trazodone 50 mg PO BEDTIME PRN 30 days triamcinolone acetonide 0.5% 1 appl topical BID PRN Tobacco use date assessed: 09/28/24 Dental Screening Dental Screen Date: 09/28/24 Did you have a dental visit in the last 12 months?: Yes Did you have a dental problem in the last 6 months where you did not have access to dental care?: No Was dental information given to patient?: Patient has dentist HPI 4 month f/u HPI Details Patient comes in today for her follow-up visit States that she feels okay She denies any headaches or dizziness reports experiencing recurrent right ear pain and discomfort for about a week now Relates that she has also noticed some drainage from her right ear over the past week She denies any fever or sore throat; denies any recent cough or cold symptoms Denies any chest pains, no increased shortness of breath No nausea/vomiting, no abdominal pain No change in bowel habits noted She was not able to get her follow-up labs done prior to her visit today - states that she will try to get them done philip PFSH Medical History Anemia Insomnia Vitamin D deficiency Impaired fasting glucose Asthma Migraine Surgical History No pertinent past surgical history Family History Father Cancer Mother Diabetes Social History Housing: Apartment Alcohol intake: never Patient Tobacco Use Status: Never used Tobacco e-Cigarette/Vaping Use: Never Used Second Hand Smoke Exposure: No service: No Current occupational status: employed Cognitive needs: No Hearing needs: No Vision needs: No Questionnaire PHQ-9 Over the last 2 weeks, how often have you been bothered by any of the following problems? 1. Little interest or pleasure in doing things: not at all 2. Feeling down, depressed, or hopeless: not at all 3. Trouble falling or staying asleep, or sleeping too much: not at all 4. Feeling tired or having little energy: not at all 5. Poor appetite or overeating: not at all 6. Feeling bad about yourself - or that you are a failure or have let yourself or your family down: not at all 7. Trouble concentrating on things, such as reading the newspaper or watching television: not at all 8. Moving or speaking so slowly that other people could have noticed. Or the opposite - being so fidgety or restless that you have been moving around a lot more than usual: not at all 9. Thoughts that you would be better off or of hurting yourself in some way: not at all Total score: 0 Depression Screening Interpretation: Negative Depression Screening Done: Yes 78249 - PHQ-9 Billing: Yes Source: Developed by Drs. Etienne Baird, Suad Velasquez, Federico Dupont and colleagues, with an educational nathan from [employer]. Thrive Questionnaire Date Thrive assessed: 09/28/24 I am a: Patient What is your living situation today?: I have a steady place to live Within the past 12 months, did the food you bought not last and you didn't have the money to get more?: Never true Within the past 12 months, did you worry whether your food would run out before you got money to buy more?: Never true Do you have trouble paying for medicines?: No Do you have trouble getting transportation to medical appointments?: No Do you have trouble paying your heating and electricity bill?: No Do you have trouble taking care of your child, family member or friend?: No Do you have trouble with day-to-day activities such as bathing, preparing meals, shopping, managing finances, etc.?: No Are you currently unemployed and looking for a job?: No Are you interested in more education?: No Please select the resources that you would like help with: None Currently or been in a relationship where the following occur: No concerns reported THRIVE Score: 0 AUDIT C Alcohol Use Questionnaire (AUDIT-C) 1. How often do you have a drink containing alcohol?: Never 3. How often do you have six or more drinks on one occasion?: Never Total Score: 0 Score Reviewed/Action Taken: Yes VANI-7 AMB Questionnaire VANI-7 Date VANI - 7 assessed: 09/28/24 Feeling nervous, anxious, or on edge: 0 = Not at all Not being able to stop or control worryin = Not at all Worrying too much about different things: 0 = Not at all Trouble relaxin = Not at all Being so restless that it is hard to sit still: 0 = Not at all Becoming easily annoyed or irritable: 0 = Not at all Feeling afraid as if something awful might happen: 0 = Not at all Total VANI-7 score (0-4 normal; 5-9 mild; 10-14 moderate; 15-21 severe): 0 Source: Developed by Drs. Etienne Baird, Suad Velsaquez, Federico Dupont and colleagues, with an educational nathan from [employer]. Review of Systems Const Denies chills, Denies fatigue, Denies fever(s) and Denies headache(s) ENT Denies dysphagia, Denies dizziness, Reports ear discharge (on and off from the right ear), Reports otalgia (right ear - for the past wee), Denies headache(s), Denies nasal congestion, Denies neck pain, Denies odynophagia and Denies sore throat Card Denies chest pain, Denies rapid heart rate, Denies irregular heart rhythm, Denies palpitations and Denies dyspnea Resp Denies chest congestion, Denies cough, Denies dyspnea and Denies wheezing GI Denies abdominal pain, Denies constipation, Denies dysphagia, Denies heartburn, Denies diarrhea, Denies nausea, Denies odynophagia and Denies vomiting Denies urinary frequency, Denies difficulty voiding, Denies dysuria and Denies urinary urgency Musc Reports back pain (recurrent, over the lower back), Reports arthralgias (over the index finger of the left hand) and Denies neck pain Skin/Breast Denies rash Neuro Denies dizziness, Denies headache(s) and Denies paresthesias Psych Denies anxiety and Denies depression Endo Denies fatigue and Denies palpitations Vitaly/Lymph Denies easy bruising Aller/Immun Denies wheezing Physical exam (Primary Care) Vital Signs: Last Vital Signs Pulse 93 09/28/24 10:45 BP 122/76 09/28/24 10:45 Pulse Ox 97 09/28/24 10:45 Oxygen Delivery Method Room Air 09/28/24 10:45 BMI result Body Mass Index 24.0 Tobacco/Smoking Status: Tobacco use Status Tobacco use date assessed 09/28/24 09/28/24 10:50 Patient Tobacco Use Status Never used Tobacco 09/28/24 10:50 e-Cigarette/Vaping Use Never Used 09/28/24 10:50 PHQ-9: PHQ-9 Score PHQ-9: Total score 0 09/28/24 11:42 Depression Screening Interpretation: Negative Thrive Assessment: Date of Thrive Assessment Date Thrive assessed 09/28/24 09/28/24 10:50 Currently or been in a relationship where the following occur: No concerns reported Const General: no acute distress and alert HENMT Ears: TM normal on the left, EAC's normal (left ear), Abnormal EAC present (right ear) otic discharge purulent on the right and TM abnormal (mildly) erythematous on the right Throat: Yes posterior oropharynx normal and Yes tonsils normal (no TP congestion) Neck Neck: Yes supple and No lymphadenopathy Thyroid: Thyroid normal Resp Auscultation: clear to auscultation bilaterally, no rales and no wheezes Cardio Rate: regular rate Rhythm: regular rhythm Heart sounds: no murmurs GI Palpation (GI): Soft to palpation and nontender Auscultation: normal bowel sounds General: Yes no CVA tenderness Back/Spine/Pelvis Back: no CVA tenderness Thoracic/Lumbar Spine: lumbar spinal tenderness (mild) Skin Rashes: no rashes Extrem General: Yes no clubbing, cyanosis or edema Coding Level of Care Code Est Pt Level 4 (45629) Diagnoses Moderate persistent asthma without complication J45.40 Asthma severity: moderate Asthma persistence: persistent Asthma complication type: uncomplicated Migraine with aura and without status migrainosus, not intractable G43.109 Migraine type: with aura Status migrainosus presence: without status migrainosus Intractability: not intractable Dyslipidemia E78.5 Impaired fasting glucose R73.01 Anemia, unspecified type D64.9 Anemia type: unspecified type Vitamin D deficiency E55.9 Primary osteoarthritis of right knee M17.11 Osteoarthritis type: primary Right otitis media, unspecified otitis media type H66.91 Otitis media type: unspecified Insomnia, unspecified type G47.00 Insomnia type: unspecified Additional Codes PHQ-9 - 39485 - PHQ-9 Billing: Yes ([id number]) Assessment & Plan Assessment & Plan (1) Asthma: Code(s): J45.909 - Unspecified asthma, uncomplicated Category: Medical Qualifiers: Asthma severity: moderate Asthma persistence: persistent Asthma complication type: uncomplicated Qualified Code(s): J45.40 - Moderate persistent asthma, uncomplicated Plan: Stable Continue Advair HFA 115-21 mcg 2 inhalations BID and Albuterol HFA 2 inhalations every 6 hours as needed (2) Migraine: Code(s): G43.909 - Migraine, unspecified, not intractable, without status migrainosus Category: Medical Qualifiers: Migraine type: with aura Status migrainosus presence: without status migrainosus Intractability: not intractable Qualified Code(s): G43.109 - Migraine with aura, not intractable, without status migrainosus Plan: Patient states that her headaches have been well-controlled on prophylactic Tx with Topiramate Continue Topiramate 25 mg Q HS and Tramadol 50 mg TID PRN only for severe headaches Reinforced again avoidance of any potential migraine triggers (3) Dyslipidemia: Code(s): E78.5 - Hyperlipidemia, unspecified Category: Medical Plan: She was not able to get her follow-up labs done prior to appointment today - states that she had to get them done PHILIP Reinforced low cholesterol diet Continue [place]-3 capsules 2000 mg QD (4) Impaired fasting glucose: Code(s): R73.01 - Impaired fasting glucose Category: Medical Plan: Her in-office HgbA1c done today is normal at 5.3% a few months ago; it was also at 5.3% when previously checked earlier this year Reinforced low calorie diet/exercise as tolerated (5) Anemia: Code(s): D64.9 - Anemia, unspecified Category: Medical Qualifiers: Anemia type: unspecified type Qualified Code(s): D64.9 - Anemia, unspecified Plan: Improved - H/H was now at 12.1/35.6 when last checked a few months ago Continue Multivitamins with Iron tablets daily Will continue to monitor her CBC regularly (6) Vitamin D deficiency: Code(s): E55.9 - Vitamin D deficiency, unspecified Category: Medical Plan: Continue Vitamin D3 1000 units QD (7) Osteoarthritis of right knee: Code(s): M17.11 - Unilateral primary osteoarthritis, right knee Category: Medical Qualifiers: Osteoarthritis type: primary Qualified Code(s): M17.11 - Unilateral primary osteoarthritis, right knee Plan: X-rays of the right knee done a few years ago revealed (+) mild medial joint space narrowing Continue Tramadol 50 mg TID PRN for pain (8) Otitis media of right ear: Code(s): H66.91 - Otitis media, unspecified, right ear Category: Medical Qualifiers: Otitis media type: unspecified Qualified Code(s): H66.91 - Otitis media, unspecified, right ear Plan: Will start patient on Ofloxacin 0.3% otic solution to apply up to 10 drops into the right ear BID x 7 days (9) Insomnia: Code(s): G47.00 - Insomnia, unspecified Category: Medical Qualifiers: Insomnia type: unspecified Qualified Code(s): G47.00 - Insomnia, unspecified Plan: Sleep hygiene reinforced Continue Trazodone 50 mg Q HS PRN Plan Follow up in 4 months Medications: New ofloxacin 0.3% 10 drps otic (ears) BID 7 days 10 mL 0RF
== END 2024-09-28 11:46 | disposition home or self-care (01) ==
PROVIDERS: PCP Internal Medicine; Visit Provider Internal Medicine
DX: J45.40 Moderate persistent asthma, uncomplicated (principal); G43.109 Migraine with aura, not intractable, without status migrainosus; E78.5 Hyperlipidemia, unspecified; R73.01 Impaired fasting glucose; D64.9 Anemia, unspecified; E55.9 Vitamin D deficiency, unspecified; M17.11 Unilateral primary osteoarthritis, right knee; H66.91 Otitis media, unspecified, right ear; G47.00 Insomnia, unspecified

== ENCOUNTER → 2024-09-28 10:27 | Outpatient (BNVA) | payer OTHER, SELFPAY | PROVIDERS: PCP Internal Medicine; Visit Provider Internal Medicine | DX: J45.40 Moderate persistent asthma, uncomplicated (principal); G43.109 Migraine with aura, not intractable, without status migrainosus; E78.5 Hyperlipidemia, unspecified; R73.01 Impaired fasting glucose; D64.9 Anemia, unspecified; E55.9 Vitamin D deficiency, unspecified; M17.11 Unilateral primary osteoarthritis, right knee; H66.91 Otitis media, unspecified, right ear; G47.00 Insomnia, unspecified | CPT/HCPCS: 96127; 99212 ==

== ENCOUNTER 2025-01-23 15:04 | Outpatient (REF) | payer OTHER, SELFPAY ==
--- OUTSIDE RECORDS SUMMARY | 2025-01-23 18:08 | XMS_ITS ---
Author Organization [employer] [facility] Address [address] [place] [id number] Care Team Providers Care Television Repairman Name Role Phone Marcia Meier Unavailable [phone] Allergies No Known Allergies REASON FOR VISIT [...] 03/06/2024 Encounters Encounter Location Date Provider Diagnosis [address] [id number] 03/06/2024 Marcia Mcclouds Encounter for routin e [...] * Kristyn CROWLEYDOB:1970 ([age] yo F)Acc No.[id number]:03/06/2024 Progress Note Patient:?Kristyn CROWLEY Provider:?LEOBARDO Yanez :1970???Age:53 Y???Sex:Female D ate:03/06/2024 Address:[address] [place] [address] Subjective: * Chief Complaints: * ???IUD Evaluation [...] intercourse.?Denies?Painful menses.?Denies?Vaginal discharge/itching.? 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 14579 New-Straightforward (IN USE). * Procedure Codes:? * Sign off status: Completed true * Provider:?LEOBARDO Yanez Date: ?03/06/2024 Generated for Dianne quezada/Tobias/eTransmitting on:?01/23/2025 06:08 PM EDT History and Physical Notes * HPI (History [...]
--- OUTSIDE RECORDS SUMMARY | 2025-01-23 18:09 | XMS_ITS | Patient Health Record ---
Author Organization [employer] [facility] Address [address] [place] [phone] Care Team Providers Care Associate Editor Name Role Phone Marcia Meier Unavailable [phone] Allergies No Known Allergies Reason For Referral [...] 03/06/2024 Encounters Encounter Location Date Provider Diagnosis [address] [id number] 03/06/2024 Marcia Meier Encounter for routin e [...] Insured Coverage Start Date Coverage End Date [place] ATT CLAIMS [address] [place] [id number] Kristyn Crowley Self - patient is the insured Medical (General) History Medical History History ICD Code No significant problems
== END 2025-01-23 15:05 | disposition home or self-care (01) ==
LOC: HO.MAMMO 15:04
PROVIDERS: PCP Internal Medicine; Visit Provider Internal Medicine
DX: Z12.31 Encounter for screening mammogram for malignant neoplasm of breast (principal)
CPT/HCPCS: 77063; 77067

== ENCOUNTER → 2025-01-23 16:00 | Outpatient (BNV) | payer OTHER, SELFPAY | PROVIDERS: PCP Internal Medicine; Visit Provider Internal Medicine | DX: Z12.31 Encounter for screening mammogram for malignant neoplasm of breast (principal) | CPT/HCPCS: 77063; 77067 ==

== ENCOUNTER 2025-01-30 11:27 | Outpatient (AMB) | payer OTHER, SELFPAY ==
[2025-01-30 12:33] VITALS: BP 102/60; PULSE 99; O2SAT 99; BMI 24.2
--- NOTE | 2025-01-30 12:33 | MHC.PC.OV ---
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 Accompanied by: Self / Same As Patient Allergies No Known Allergies Allergy (Verified 01/30/25 12:52) Medication List - Last Reconciled 01/30/25 by Emanuel hBatt MD albuterol sulfate 90 mcg/actuation (Ventolin HFA) 2 puffs inhalation Q4-6H PRN calcium carbonate 600 mg PO DAILY 90 days cholecalciferol (vitamin D3) 25 mcg PO DAILY cyclobenzaprine 5 mg PO BEDTIME PRN multivitamin with iron 1 tab PO DAILY 90 days omega-3 fatty acids 2,000 mg (2 x 1,000 mg) PO DAILY 30 days peg 3350-electrolytes 236-22.74-6.74 -5.86 gram 240 mL PO Q10M tramadol 50 mg PO Q8H PRN 30 days trazodone 50 mg PO BEDTIME PRN 30 days triamcinolone acetonide 0.5% 1 appl topical BID PRN Tobacco use date assessed: 01/30/25 Dental Screening Dental Screen Date: 01/30/25 Did you have a dental visit in the last 12 months?: Yes Did you have a dental problem in the last 6 months where you did not have access to dental care?: No Was dental information given to patient?: Patient has dentist [facility] HPI Details Patient comes in today for her follow up visit States that she has been experiencing increased pain over her left wrist and distal left forearm for a few days She does not recall any recent injury or trauma to her left wrist or left arm and is suspecting that she may have sustained some injury while doing some heavy lifting at work recently Would like to see if she can get some x-rays done to check her injury out States that she feels okay otherwise She denies any headaches or dizziness Denies any chest pains, no increased SOB No nausea/vomiting, no abdominal pain No change in bowel habits noted PFSH Medical History Anemia Insomnia Vitamin D deficiency Impaired fasting glucose Asthma Migraine Surgical History No pertinent past surgical history Family History Father Cancer Mother Diabetes Social History Housing: Apartment Alcohol intake: never Patient Tobacco Use Status: Never used Tobacco e-Cigarette/Vaping Use: Never Used Second Hand Smoke Exposure: No service: No Current occupational status: employed Cognitive needs: No Hearing needs: No Vision needs: No Questionnaire PHQ-9 Over the last 2 weeks, how often have you been bothered by any of the following problems? 1. Little interest or pleasure in doing things: not at all 2. Feeling down, depressed, or hopeless: not at all 3. Trouble falling or staying asleep, or sleeping too much: not at all 4. Feeling tired or having little energy: not at all 5. Poor appetite or overeating: not at all 6. Feeling bad about yourself - or that you are a failure or have let yourself or your family down: not at all 7. Trouble concentrating on things, such as reading the newspaper or watching television: not at all 8. Moving or speaking so slowly that other people could have noticed. Or the opposite - being so fidgety or restless that you have been moving around a lot more than usual: not at all 9. Thoughts that you would be better off or of hurting yourself in some way: not at all Total score: 0 Depression Screening Interpretation: Negative Depression Screening Done: Yes 29699 - PHQ-9 Billing: Yes Source: Developed by Drs. Etienne Baird, Suad Velasquez, Federico Dupont and colleagues, with an educational nathan from [employer]. Thrive Questionnaire Date Thrive assessed: 01/30/25 I am a: Patient What is your living situation today?: I have a steady place to live Within the past 12 months, did the food you bought not last and you didn't have the money to get more?: Never true Within the past 12 months, did you worry whether your food would run out before you got money to buy more?: Never true Do you have trouble paying for medicines?: No Do you have trouble getting transportation to medical appointments?: No Do you have trouble paying your heating and electricity bill?: No Do you have trouble taking care of your child, family member or friend?: No Do you have trouble with day-to-day activities such as bathing, preparing meals, shopping, managing finances, etc.?: No Are you currently unemployed and looking for a job?: No Are you interested in more education?: No Please select the resources that you would like help with: None Currently or been in a relationship where the following occur: No concerns reported THRIVE Score: 0 AUDIT C Alcohol Use Questionnaire (AUDIT-C) 1. How often do you have a drink containing alcohol?: Never 3. How often do you have six or more drinks on one occasion?: Never Total Score: 0 Score Reviewed/Action Taken: Yes VANI-7 AMB Questionnaire VANI-7 Date VANI - 7 assessed: 01/30/25 Feeling nervous, anxious, or on edge: 0 = Not at all Not being able to stop or control worryin = Not at all Worrying too much about different things: 0 = Not at all Trouble relaxin = Not at all Being so restless that it is hard to sit still: 0 = Not at all Becoming easily annoyed or irritable: 0 = Not at all Feeling afraid as if something awful might happen: 0 = Not at all Total VANI-7 score (0-4 normal; 5-9 mild; 10-14 moderate; 15-21 severe): 0 Source: Developed by Drs. Etienne Baird, Suad Velasquez, Federico Dupont and colleagues, with an educational nathan from [employer]. Review of Systems Const Denies chills, Denies fatigue, Denies fever(s) and Denies headache(s) ENT Denies dysphagia, Denies dizziness, Denies otalgia, Denies headache(s), Denies neck pain, Denies odynophagia and Denies sore throat Card Denies chest pain, Denies irregular heart rhythm, Denies palpitations and Denies dyspnea Resp Denies chest congestion, Denies cough and Denies dyspnea GI Denies abdominal pain, Denies constipation, Denies dysphagia, Denies heartburn, Denies diarrhea, Denies nausea, Denies odynophagia and Denies vomiting Denies urinary frequency, Denies difficulty voiding, Denies dysuria and Denies urinary urgency Musc Reports back pain (recurrent, over the lower back), Reports arthralgias (over her left wrist and distal left forearm lately) and Denies neck pain Skin/Breast Denies rash Neuro Denies dizziness, Denies headache(s) and Denies paresthesias Psych Denies anxiety and Denies depression Endo Denies fatigue and Denies palpitations Vitaly/Lymph Denies easy bruising Physical exam (Primary Care) Vital Signs: Last Vital Signs Pulse 99 01/30/25 12:33 BP 102/60 01/30/25 12:33 Pulse Ox 99 01/30/25 12:33 Oxygen Delivery Method Room Air 01/30/25 12:33 BMI result Body Mass Index 24.2 Tobacco/Smoking Status: Tobacco use Status Tobacco use date assessed 01/30/25 01/30/25 12:35 Patient Tobacco Use Status Never used Tobacco 01/30/25 12:35 e-Cigarette/Vaping Use Never Used 01/30/25 12:35 PHQ-9: PHQ-9 Score PHQ-9: Total score 0 01/30/25 12:35 Depression Screening Interpretation: Negative Thrive Assessment: Date of Thrive Assessment Date Thrive assessed 01/30/25 01/30/25 12:35 Currently or been in a relationship where the following occur: No concerns reported Const General: no acute distress and alert HENMT Ears: TM's normal bilaterally and EAC's normal Throat: Yes posterior oropharynx normal and Yes tonsils normal (no TP congestion) Neck Neck: Yes supple and No lymphadenopathy Thyroid: Thyroid normal Resp Auscultation: clear to auscultation bilaterally, no rales and no wheezes Cardio Rate: regular rate Rhythm: regular rhythm Heart sounds: no murmurs GI Palpation (GI): Soft to palpation and nontender Auscultation: normal bowel sounds General: Yes no CVA tenderness Back/Spine/Pelvis Back: no CVA tenderness Thoracic/Lumbar Spine: lumbar spinal tenderness (mild) Skin Rashes: no rashes Extrem Other: (+) tenderness over the left wrist and distal left forearm, mostly over the dorsal aspect; (+) tenderness with some swelling noted over the radial prominence on the left wrist dorsally General: Yes no clubbing, cyanosis or edema Left upper extremity: wrist Coding Level of Care Code Est Pt Level 4 (18694) Diagnoses Left forearm pain M79.632 Moderate persistent asthma without complication J45.40 Asthma severity: moderate Asthma persistence: persistent Asthma complication type: uncomplicated Migraine with aura and without status migrainosus, not intractable G43.109 Migraine type: with aura Status migrainosus presence: without status migrainosus Intractability: not intractable Dyslipidemia E78.5 Impaired fasting glucose R73.01 Anemia, unspecified type D64.9 Anemia type: unspecified type Vitamin D deficiency E55.9 Primary osteoarthritis of right knee M17.11 Osteoarthritis type: primary Insomnia, unspecified type G47.00 Insomnia type: unspecified Additional Codes PHQ-9 - 78766 - PHQ-9 Billing: Yes ([id number]) Assessment & Plan Assessment & Plan (1) Left forearm pain: Code(s): M79.632 - Pain in left forearm Category: Medical Plan: Will send patient for x-rays of the left wrist and distal left forearm PHILIP for further evaluation (2) Asthma: Code(s): J45.909 - Unspecified asthma, uncomplicated Category: Medical Qualifiers: Asthma severity: moderate Asthma persistence: persistent Asthma complication type: uncomplicated Qualified Code(s): J45.40 - Moderate persistent asthma, uncomplicated Plan: Controlled Continue Advair HFA 115-21 mcg 2 inhalations BID and Albuterol HFA 2 inhalations every 6 hours as needed (3) Migraine: Code(s): G43.909 - Migraine, unspecified, not intractable, without status migrainosus Category: Medical Qualifiers: Migraine type: with aura Status migrainosus presence: without status migrainosus Intractability: not intractable Qualified Code(s): G43.109 - Migraine with aura, not intractable, without status migrainosus Plan: Patient states that her headaches remain well-controlled on prophylactic Tx with Topiramate Reinforced again avoidance of any potential migraine triggers Continue Topiramate 25 mg Q HS and Tramadol 50 mg TID PRN only for severe headaches (4) Dyslipidemia: Code(s): E78.5 - Hyperlipidemia, unspecified Category: Medical Plan: Reinforced low cholesterol diet Continue [place]-3 capsules 2000 mg QD Will have patient recheck her labs and fasting lipids in 3 months for follow up (5) Impaired fasting glucose: Code(s): R73.01 - Impaired fasting glucose Category: Medical Plan: Her in-office HgbA1c was normal at 5.3% a few months ago Reinforced low calorie diet/exercise as tolerated (6) Anemia: Code(s): D64.9 - Anemia, unspecified Category: Medical Qualifiers: Anemia type: unspecified type Qualified Code(s): D64.9 - Anemia, unspecified Plan: Improved - H/H was at 12.1/35.6 when checked last year Continue Multivitamins with Iron tablets daily Will continue to monitor her CBC regularly (7) Vitamin D deficiency: Code(s): E55.9 - Vitamin D deficiency, unspecified Category: Medical Plan: Continue Vitamin D3 1000 units QD (8) Osteoarthritis of right knee: Code(s): M17.11 - Unilateral primary osteoarthritis, right knee Category: Medical Qualifiers: Osteoarthritis type: primary Qualified Code(s): M17.11 - Unilateral primary osteoarthritis, right knee Plan: X-rays of the right knee done a few years ago revealed (+) mild medial joint space narrowing Continue Tramadol 50 mg TID PRN for pain (9) Insomnia: Code(s): G47.00 - Insomnia, unspecified Category: Medical Qualifiers: Insomnia type: unspecified Qualified Code(s): G47.00 - Insomnia, unspecified Plan: Sleep hygiene reinforced Continue Trazodone 50 mg Q HS PRN Plan Follow up as scheduled in April 2025 Orders: Orders XR forearm LT 2V Today M79.632 - Pain in left forearm XR wrist LT min 3V Today M25.532 - Pain in left wrist Lipid Panel 05/05/25 E78.00 - Pure hypercholesterolemia, unspecified TSH reflex Free T4 05/05/25 E78.00 - Pure hypercholesterolemia, unspecified Complete Blood Count Auto Diff 05/05/25 D64.9 - Anemia, unspecified Comprehensive [place]. Panel Fast 05/05/25 E78.00 - Pure hypercholesterolemia, unspecified UA CC w/rflx Micro + Cult 05/05/25 R30.0 - Dysuria Vitamin D 25-OH Total 05/05/25 E55.9 - Vitamin D deficiency, unspecified
--- OUTSIDE RECORDS SUMMARY | 2025-01-30 14:11 | XMS_ITS ---
Author Organization [facility] Address [address] [place] [phone] Care Team Providers Care Market Editor Name Role Phone Marcia Meier Unavailable [phone] Allergies No Known Allergies REASON FOR VISIT [...] 03/06/2024 Encounters Encounter Location Date Provider Diagnosis [address] [id number] 03/06/2024 Marcia Mcclouds Encounter for routin e [...] * Kristyn CROWLEYDOB:1970 ([age] yo F)Acc No.[id number]:03/06/2024 Progress Note Patient:?Kristyn CROWLEY Provider:?LEOBARDO Yanez :1970???Age:53 Y???Sex:Female D ate:03/06/2024 Address:[address] [place] [address] Subjective: * Chief Complaints: * ???IUD Evaluation [...] intercourse.?Denies?Painful menses.?Denies?Vaginal discharge/itching.? 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 34061 New-Straightforward (IN USE). * Procedure Codes:? * Sign off status: Completed true * Provider:?LEOBARDO Yanez Date: ?03/06/2024 Generated for Dianne quezada/Tobias/eTransmitting on:?01/30/2025 02:11 PM EDT History and Physical Notes * [...]
--- OUTSIDE RECORDS SUMMARY | 2025-01-30 14:12 | XMS_ITS | Patient Health Record ---
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
== END 2025-01-30 12:58 | disposition home or self-care (01) ==
LOC: HO.HMCH 11:27
PROVIDERS: PCP Internal Medicine; Visit Provider Internal Medicine
DX: M79.632 Pain in left forearm (principal); J45.40 Moderate persistent asthma, uncomplicated; G43.109 Migraine with aura, not intractable, without status migrainosus; E78.5 Hyperlipidemia, unspecified; R73.01 Impaired fasting glucose; D64.9 Anemia, unspecified; E55.9 Vitamin D deficiency, unspecified; M17.11 Unilateral primary osteoarthritis, right knee; G47.00 Insomnia, unspecified

== ENCOUNTER 2025-01-30 11:27 | Outpatient (REF) | payer OTHER, SELFPAY ==
--- NOTE | ~2025-01-30 | XR_ITS ---
CLINICAL HISTORY: M79.632 - Pain in left forearm Left forearm two views Comparison: None Findings: No acute fracture or dislocation identified. No acute focal bony abnormality. No radiopaque foreign body noted. Impression: No acute bony abnormality This document has been electronically signed by: Nico Martines MD on 01/31/2025 20:18:37
--- NOTE | ~2025-01-30 | XR_ITS ---
CLINICAL HISTORY: M25.532 - Pain in left wrist Left wrist 4 views Comparison: None Findings: No acute fracture or dislocation identified. No acute focal bony abnormality. No radiopaque foreign body noted. Impression: No acute bony abnormality This document has been electronically signed by: Nico Martines MD on 01/31/2025 20:18:22
== END 2025-01-30 11:28 | disposition home or self-care (01) ==
LOC: HO.XRAY 11:27
PROVIDERS: PCP Internal Medicine; Visit Provider Internal Medicine
DX: M79.632 Pain in left forearm (principal); M25.532 Pain in left wrist; J45.40 Moderate persistent asthma, uncomplicated; G43.109 Migraine with aura, not intractable, without status migrainosus; E78.5 Hyperlipidemia, unspecified; R73.01 Impaired fasting glucose; D64.9 Anemia, unspecified; E55.9 Vitamin D deficiency, unspecified; M17.11 Unilateral primary osteoarthritis, right knee; G47.00 Insomnia, unspecified
CPT/HCPCS: 73090; 73110; 96127; 99212

== ENCOUNTER → 2025-01-30 13:10 | Outpatient (BNV) | payer OTHER, SELFPAY | PROVIDERS: PCP Internal Medicine; Visit Provider Radiology Diagnostic Radiology | DX: M25.532 Pain in left wrist (principal); M79.632 Pain in left forearm | CPT/HCPCS: 73090; 73110 ==